=== PATIENT | male | born 1990 | race Caucasian/White ===

== ENCOUNTER 2018-04-29 21:07 | Emergency (ER) | payer SELFPAY ==
[~2018-04-29] VITALS: Ht 172.7 cm; Wt 129.7 kg
--- OUTSIDE RECORDS SUMMARY | 2018-04-29 21:12 | XMS REPORT | Continuity of Care Document ---
Author Author [facility] Address Unknown Phone Unavailable Allergies There is no data. Medications There is no data. Problems Date Dx Coded Attending Type Code Diagnosis Diagnosed By 11/18/2007 V70.3 SPORTS/SCHOOL EXAM 11/18/2007 XIN WINSLOW APRN V70.3 SPORTS/SCHOOL EXAM 11/18/2007 IXN WINSLOW APRN V70.3 SPORTS/SCHOOL EXAM 11/18/2007 XIN WINSLOW APRN V70.3 SPORTS/SCHOOL EXAM 11/18/2007 XIN WINSLOW APRN V70.3 SPORTS/SCHOOL EXAM 11/18/2007 XIN WINSLOW APRN V70.3 SPORTS/SCHOOL EXAM 11/18/2007 XIN WINSLOW APRN V70.3 SPORTS/SCHOOL EXAM 11/18/2007 BECKI LEBLANC APRN S V70.3 SPORTS/SCHOOL EXAM 12/20/2008 477.9 RHINITIS 12/20/2008 XIN WINSLOW APRN 477.9 RHINITIS 12/20/2008 XIN WINSLOW APRN 477.9 RHINITIS 12/20/2008 XIN WINSLOW APRN 477.9 RHINITIS 12/20/2008 XIN WINSLOW APRN 477.9 RHINITIS 12/20/2008 XIN WINSLOW APRN 477.9 RHINITIS 12/20/2008 XIN WINSLOW APRN 477.9 RHINITIS 12/20/2008 BECKI LEBLANC APRN S 477.9 RHINITIS 01/13/2009 462 PHARYNGITIS ACUTE 01/13/2009 XIN WINSLOW APRN 462 PHARYNGITIS ACUTE 01/13/2009 XIN WINSLOW APRN 462 PHARYNGITIS ACUTE 01/13/2009 XIN WINSLOW APRN 462 PHARYNGITIS ACUTE 01/13/2009 XIN WINSLOW APRN 462 PHARYNGITIS ACUTE 01/13/2009 XIN WINSLOW APRN 462 PHARYNGITIS ACUTE 01/13/[address] SQL DEVELOPER, XIN T 462 PHARYNGITIS ACUTE 01/13/2009 BECKI LEBLANC APRN S 462 PHARYNGITIS ACUTE 01/03/2012 703.0 INGROWING NAIL 01/03/2012 NAYLA ALBAN, XIN T 703.0 INGROWING NAIL 01/03/2012 NAYLA ALBAN, XIN T 703.0 INGROWING NAIL 01/03/2012 NAYLA ALBAN, XIN T 703.0 INGROWING NAIL 01/03/2012 NAYLA ALBAN, XIN T 703.0 INGROWING NAIL 01/03/2012 NAYLA ALBAN, XIN T 703.0 INGROWING NAIL 01/03/2012 NAYLA ALBAN, XIN T 703.0 INGROWING NAIL 01/03/2012 BECKI LEBLANC APRN S 703.0 INGROWING NAIL 11/03/2012 382.9 OTITIS MEDIA 11/03/2012 NAYLA HUDDLESTON, XIN T 382.9 OTITIS MEDIA 11/03/2012 NAYLA HUDDLESTON, XIN T 382.9 OTITIS MEDIA 11/03/2012 NAYLA HUDDLESTON, XIN T 382.9 OTITIS MEDIA 11/03/2012 NAYLA HUDDLESTON, XIN T 382.9 OTITIS MEDIA 11/03/2012 NAYLA HUDDLESTON, XIN T 382.9 OTITIS MEDIA 11/03/2012 NAYLA HUDDLESTON, XIN T 382.9 OTITIS MEDIA 11/03/2012 BECKI LEBLANC APRN S 382.9 OTITIS MEDIA 12/29/2012 XIN WINSLOW APRN T 795.51 POSITIVE TB SKIN TEST 12/29/2012 XIN WINSLOW APRN T 795.51 POSITIVE TB SKIN TEST 12/29/2012 XIN WINSLOW APRN T 795.51 POSITIVE TB SKIN TEST 12/29/2012 XIN WINSLOW APRN T 795.51 POSITIVE TB SKIN TEST 12/29/2012 XIN WINSLOW APRN T 795.51 POSITIVE TB SKIN TEST 12/29/2012 XIN WINSLOW APRN T 795.51 POSITIVE TB SKIN TEST 12/29/2012 BECKI LEBLANC APRN S 795.51 POSITIVE TB SKIN TEST 01/01/2013 XIN WINSLOW APRN 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 BACILLI NOT FOUND (IN SPUTUM) BY MICROSCOPY BUT FOUND BY BACTERIAL CULTURE 01/01/2013 XIN WINSLOW APRN 780.57 SLEEP APNEA 01/01/2013 XIN WINSLOW APRN T V04.81 FLU SHOT 01/01/2013 XIN WINSLOW APRN T 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 BACILLI NOT FOUND (IN SPUTUM) BY MICROSCOPY BUT FOUND BY BACTERIAL CULTURE 01/01/2013 XIN WINSLOW APRN T 780.57 SLEEP APNEA 01/01/2013 XIN WINSLOW APRN T V04.81 FLU SHOT 01/01/2013 XIN WINSLOW APRN T 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 BACILLI NOT FOUND (IN SPUTUM) BY MICROSCOPY BUT FOUND BY BACTERIAL CULTURE 01/01/2013 XIN WINSLOW APRN 780.57 SLEEP APNEA 01/01/2013 XIN WINSLOW APRN T V04.81 FLU SHOT 01/01/2013 XIN WISNLOW APRN T 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 BACILLI NOT FOUND (IN SPUTUM) BY MICROSCOPY BUT FOUND BY BACTERIAL CULTURE 01/01/2013 XIN WINSLOW APRN 780.57 SLEEP APNEA 01/01/2013 XIN WINSLOW APRN T V04.81 FLU SHOT 01/01/2013 XIN WINSLOW APRN T 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 BACILLI NOT FOUND (IN SPUTUM) BY MICROSCOPY BUT FOUND BY BACTERIAL CULTURE 01/01/2013 XIN WINSLOW APRN T 780.57 SLEEP APNEA 01/01/2013 XIN WINSLOW APRN T V04.81 FLU SHOT 01/01/2013 BECKI LEBLANC APRN S 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 BACILLI NOT FOUND (IN SPUTUM) BY MICROSCOPY BUT FOUND BY BACTERIAL CULTURE 01/01/2013 BECKI LEBLANC APRN S 780.57 SLEEP APNEA 01/01/2013 BECKI LEBLANC APRN S V04.81 FLU SHOT 01/02/2013 XIN WINSLOW APRN T 780.57 SLEEP APNEA 01/02/2013 XIN WINSLOW APRN T 780.57 SLEEP APNEA 01/02/2013 XIN WINSLOW APRN T 780.57 SLEEP APNEA 01/02/2013 XIN WINSLOW APRN T 780.57 SLEEP APNEA 01/02/2013 XIN WINSLOW APRN T 780.57 SLEEP APNEA 01/02/2013 BECKI LEBLANC APRN S 780.57 SLEEP APNEA 03/13/2013 XIN WINSLOW APRN 327.23 SLEEP APNEA, OBSTRUCTIVE (ADULT/PED) 03/13/2013 XIN WINSLOW APRN 327.23 SLEEP APNEA, OBSTRUCTIVE (ADULT/PED) 03/13/2013 XIN WINSLOW APRN 327.23 SLEEP APNEA, OBSTRUCTIVE (ADULT/PED) 03/13/2013 XIN WINSLOW APRN 327.23 SLEEP APNEA, OBSTRUCTIVE (ADULT/PED) 03/13/2013 BECKI LEBLANC APRN 327.23 SLEEP APNEA, OBSTRUCTIVE (ADULT/PED) 09/26/2013 XIN WINSLOW APRN 278.00 OBESITY 09/26/2013 XIN WINSLOW APRN 278.00 OBESITY 09/26/2013 BECKI LEBLANC APRN 278.00 OBESITY 12/12/2013 XIN WINSLOW APRN 919.5 INSECT BITE INFECTED 12/12/2013 BECKI LEBLANC APRN 919.5 INSECT BITE INFECTED 03/25/2014 BECKI LEBLANC APRN 214.8 LIPOMA OF OTHER SPECIFIED SITES Procedures Code [place] [address] XRAY CHEST 1 VIEW 12/29/2012 88151 SLEEP STUDY 01/01/2013 52390 ROUTINE VENIPUNCTURE 05/23/2013 9962398 GFR CALC (RESULT ONLY) 05/24/2013 88326 CMP 05/24/2013 04564 ROUTINE VENIPUNCTURE 09/26/2013 62980 TSH 09/26/2013 29213 A1C (IN-HOUSE) 09/26/2013 41500 CBC 09/26/2013 1272665 GFR CALC (RESULT ONLY) 09/26/2013 22253 CMP 09/26/2013 52372 LIPID PANEL 09/26/2013 Results There is no data. Encounters ACCT No. Visit Date/Time Discharge Status Pt. Type Provider Facility Loc./Unit Complaint [id number] 03/25/2014 16:56:00 03/25/2014 23:59:59 CLS Outpatient BECKI LEBLANC APRN [id number] 12/12/2013 16:30:00 12/12/2013 23:59:59 CLS Outpatient XIN WINSLOW APRN [id number] 09/26/2013 11:47:00 09/26/2013 23:59:59 CLS Outpatient XIN WINSLOW APRN [id number] 05/23/2013 16:20:00 05/23/2013 23:59:59 CLS Outpatient XIN WINSLOW APRN [id number] 03/13/2013 15:47:00 03/13/2013 23:59:59 CLS Outpatient NAYLA ALBANXIN Michael [id number] 01/01/2013 14:33:00 01/01/2013 23:59:59 CLS Outpatient NAYLA ALBANXIN Michael [id number] 12/29/2012 16:28:00 12/29/2012 23:59:59 CLS Outpatient NAYLA HUDDLESTON XIN Michael [id number] 11/03/2012 11:20:00 Document Registration [id number] 01/25/2013 20:10:00 01/26/2013 07:35:00 DIS Outpatient [id number] 09/14/2017 12:10:00 09/14/2017 23:59:59 CLS Outpatient GILLIAN BAL LAC [facility]
--- OUTSIDE RECORDS SUMMARY | 2018-04-29 21:12 | XMS REPORT ---
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 Active 651981849 Problem Other specified pulmonary tuberculosis, 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, 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.84 Active Problem 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 58483232 Problem Unspecified otitis media 382.9 Active 60051232 Problem Ingrowing nail 703.0 Active 834501690 Problem Obesity, unspecified 278.00 Active 218887751 Problem Obstructive sleep apnea (adult) (pediatric) 327.23 Active [id number] ALLERGIES No Information ENCOUNTERS Encounter Location Date Diagnosis [facility] [id number] [place] [address] Feb, [facility] [id number] [place] [address] Feb, Acute left ankle pain M25.572 ; Sprain of left ankle, unspecified ligament, initial encounter S93.402A and BMI 40.0-44.9, adult Z68.41 [facility] [address] [place] [address] Jun, [facility] [id number] [place] [address] Jun, [facility] [place] [facility] [address] [id number] [place] [address] Feb, [facility] [place] [facility] [address] [id number] [place] [address] Feb, [facility] [place] [facility] [address] [id number] [place] [address] Nov, [facility] [place] [facility] [address] [id number] [place] [address] Nov, [facility] [place] [facility] [address] [id number] [place] [address] Sep, [facility] [place] [facility] [address] [id number] [place] [address] Sep, [facility] [place] [facility] [address] [id number] [place] [address] Sep, [facility] [place] [facility] [address] [id number] [place] [address] 27[address] Sep, [facility] [place] [facility] [address] [id number] [place] [address] July, [facility] [place] [facility] [address] [id number] [place] [address] July, [facility] [place] [facility] [address] [id number] [place] [address] May, [facility] [place] [facility] [address] [id number] [place] [address] May, [facility] [place] [facility] [address] [id number] [place] [address] May, [facility] [place] [facility] [address] [id number] [place] [address] Apr, [facility] [place] [facility] [address] [id number] [place] [address] 4[address] Apr, [facility] [place] [facility] [address] [id number] [place] [address] Apr, [facility] [address] [id number] [place] [address] 2546 Feb, [facility] [address] [facility] [id number] [place] [address] 2546 Feb, [facility] [address] [facility] [id number] [place] [address] Jan, [facility] [address] [id number] [place] [address] Jan, [facility] [address] [facility] [id number] [place] [address] 25[address] Jan, [facility] [address] [facility] [id number] [place] [address] Dec, [facility] [address] [facility] [id number] [place] [address] Dec, [facility] [address] [facility] [id number] [place] [address] Dec, [facility] [address] [id number] [place] [address] 1699 Dec, [facility] [address] [facility] [id number] [place] [address] 8047 Dec, [facility] [address] [id number] [place] [address] Dec, [facility] [address] [facility] [id number] [place] [address] 25[address] Oct, [facility] [address] [facility] [id number] [place] [address] Dec, [facility] [address] [facility] [id number] [place] [address] 2546 Dec, [facility] [address] [facility] [id number] [place] [address] Dec, IMMUNIZATIONS No Known Immunizations SOCIAL HISTORY Never Assessed REASON FOR VISIT Requests return call PLAN OF CARE VITAL SIGNS MEDICATIONS Unknown Medications RESULTS No Results PROCEDURES No Known procedures INSTRUCTIONS MEDICATIONS ADMINISTERED No Known Medications
--- OUTSIDE RECORDS SUMMARY | 2018-04-29 21:12 | XMS REPORT ---
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 Active 263035889 Problem Other specified pulmonary tuberculosis, 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, 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.84 Active Problem 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 30007002 Problem Unspecified otitis media 382.9 Active 15711282 Problem Ingrowing nail 703.0 Active 818881090 Problem Obesity, unspecified 278.00 Active 439004997 Problem Obstructive sleep apnea (adult) (pediatric) 327.23 Active 40902070 ALLERGIES No Known Allergies ENCOUNTERS Encounter Location Date Diagnosis [facility] [address] [place] [address] Feb, [facility] [address] [place] [address] Feb, Acute left ankle pain M25.572 ; Sprain of left ankle, unspecified ligament, initial encounter S93.402A and BMI 40.0-44.9, adult Z68.41 [facility] [address] [place] [address]- [address] Jun, [facility] [id number] [place] [address]- [address]206 Jun, [facility] [place] [facility] [address] [id number] [place] [address] Feb, [facility] [place] [facility] [address] [id number] [place] [address] 5[address] Feb, [facility] [place] [facility] [address] [id number] [place] [address]- 4285 Nov, [facility] [place] [facility] [address] [id number] [place] [address] 6959 Nov, [facility] [place] [facility] [address] [id number] [place] [address]- 1462 Sep, [facility] [place] [facility] [address] [id number] [place] [address]- 9924 Sep, [facility] [place] [facility] [address] [id number] [place] [address] 5658 Sep, [facility] [place] [facility] [address] [id number] [place] [address] 655[address] Sep, [facility] [place] [facility] [address] [id number] [place] [address] 5326 July, [facility] [place] [facility] [address] [id number] [place] [address] 7594 July, [facility] [place] [facility] [address] [id number] [place] [address] May, [facility] [place] [facility] [address] [id number] [place] [address]- 5[address] May, [facility] [place] [facility] [address] [id number] [place] [address]- 1516 May, [facility] [place] [facility] [address] [id number] [place] [address]- 3176 Apr, [facility] [place] [facility] [address] [id number] [place] [address]- 7[address] Apr, [facility] [place] [facility] [address] [id number] [place] [address] 2546 Apr, [facility] [address] [id number] [place] [address]- [address] Feb, [facility] [address] [facility] [id number] [place] [address] 2546 Feb, [facility] [address] [facility] [id number] [place] [address]- 2546 Jan, [facility] [address] [id number] [place] [address]- 2547 Jan, [facility] [address] [facility] [id number] [place] [address]- 0476 Jan, [facility] [address] [facility] [id number] [place] [address]- 2546 Dec, [facility] [address] [facility] [id number] [place] [address]- 55[address] Dec, [facility] [address] [facility] [id number] [address] Dec, [facility] [address] [facility] [id number] [place] [address]- 6[address] Dec, [facility] [address] [facility] [id number][place] [address]- 16[address] Dec, [facility] [address] [facility] [id number][place] [address] 138[address] Dec, [facility] [address] [facility] [id number], [place] [address]- 2546 Oct, [facility] [address] [facility] [id number][place] [address]- [address] Dec, [facility] [address] [facility] [id number] [address] 2546 Dec, [facility] [address] [facility] [id number][place] [address]- [address] Dec, IMMUNIZATIONS No Known Immunizations SOCIAL HISTORY Never Assessed REASON FOR VISIT ankle pain left/tripped over a toy PLAN OF CARE Activity Details Follow Up prn Reason: VITAL SIGNS Height 68 in 2017-03-03 Weight 287.2 lbs 2017-03-03 Temperature 97.8 degrees Fahrenheit 2017-03-03 Heart Rate 80 bpm 2017-03-03 Respiratory Rate 18 2017-03-03 BMI 43.66 kg/m2 2017-03-03 Blood pressure systolic 126 mmHg 2017-03-03 Blood pressure diastolic 78 mmHg 2017-03-03 MEDICATIONS Medication Instructions Dosage Frequency Start Date End Date Duration Status Amoxicillin 875 mg 1 tablet by Oral route 2 times per day for 10 day(s) Oct, Not-Taking Awrwbuzj-Kqqsoakmf-QU 3.5-10,000-1 mg-unit/mL-% 4 drop by Otic route 4 times per day for 7 day(s) to right ear Sep, Not-Taking Doxycycline Hyclate 100 mg 1 tablet by Oral route 2 times per day for 10 days Nov, Not-Taking metformin 500 mg take 1 tablet by Oral route 2 times per day with morning and evening meals Nov, Not-Taking RESULTS Name Result Date Reference Range Xray : Ankle, Left, 3 views (IN HOUSE) 2017-03-03 PROCEDURES Procedure Date Ordered Result Body Site X-RAY EXAM OF ANKLE Mar 03, 2017 INSTRUCTIONS MEDICATIONS ADMINISTERED No Known Medications
--- OUTSIDE RECORDS SUMMARY | 2018-04-29 21:12 | XMS REPORT ---
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 Active 555111588 Problem Other specified pulmonary tuberculosis, 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, 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.84 Active Problem 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 68661227 Problem Unspecified otitis media 382.9 Active 52946148 Problem Ingrowing nail 703.0 Active 310598613 Problem Obesity, unspecified 278.00 Active 330429714 Problem Obstructive sleep apnea (adult) (pediatric) 327.23 Active 90998521 ALLERGIES No Known Allergies ENCOUNTERS Encounter Location Date Diagnosis [facility] [id number] [place] [phone] Aug, Muscle spasm M62.838 [facility] [id number] [place] [phone] Feb, [facility] [id number] [place] [phone] Feb, Acute left ankle pain M25.572 ; Sprain of left ankle, unspecified ligament, initial encounter S93.402A and BMI 40.0-44.9, adult Z68.41 [facility] [id number] [place] [address], [place] [address] 14 Jun, 2014 [facility] [place] [facility] [address] [id number] [place] [address] Jun, [facility] [place] [facility] [address] [id number] [place] [address] Feb, [facility] [place] [facility] [address] [id number] [place] [address] Feb, [facility] [place] [facility] [address] [id number] [place] [address] Nov, [facility] [place] [facility] [address] [id number] [place] [address] Nov, [facility] [place] [facility] [address] [id number] [place] [address] Sep, [facility] [place] [facility] [address] [id number] [place] [address] Sep, [facility] [place] [facility] [address] [id number] [place] [address] Sep, [facility] [place] [facility] [address] [id number] [place] [address] Sep, [facility] [place] [facility] [address] [facility] [id number] [place] [address] July, [facility] [place] [facility] [address] [id number] [place] [address] July, [facility] [place] [facility] [address] [id number] [place] [address] May, [facility] [place] [facility] [address] [id number] [place] [address] May, [facility] [place] [facility] [address] [id number] [place] [address] May, [facility] [place] [facility] [address] [id number] [place] [address] Apr, [facility] [place] [facility] [address] [id number] [place] [address] Apr, [facility] [place] [facility] [address] [id number] [place] [address] Apr, [facility] [place] [facility] [address] [id number] [place] [address] Feb, [facility] [place] [facility] [address] [id number] [place] [address] Feb, [facility] [place] [facility] [address] [id number] [place] [address] Jan, [facility] [place] [facility] [address] [id number] [place] [address] Jan, [facility] [place] [facility] [address] [id number] [place] [address] Jan, [facility] [place] [facility] [address] [id number] [place] [address] Dec, [facility] [place] [facility] [address] [id number] [place] [address] Dec, [facility] [place] [facility] [address] [id number] [place] [address] Dec, [facility] [place] [facility] [address] [facility] [id number] [place] [address] Dec, [facility] [place] [facility] [address] [id number][place] [address] Dec, [facility] [place] [facility] [address] [id number] [place] [address] Dec, [facility] [place] [facility] [address] [id number] [place] [address] Oct, [facility] [place] [facility] [address] [id number][place] [address] Dec, [facility] [place] [facility] [address] [id number][place] [address] Dec, [facility] [address] [facility] [id number] [place] [address] Dec, IMMUNIZATIONS Vaccine Route Administration Date Status TORADOL (IM) 60 MG/2ML (UP TO 15 MG) IM Intramuscular September 14, 2017 Administered SOCIAL HISTORY Never Assessed REASON FOR VISIT back pain started yesterday JStrasserRN PLAN OF CARE Activity Details Follow Up prn Reason: VITAL SIGNS Height 68 in 2017-09-14 Weight 287.0 lbs 2017-09-14 Temperature 98.1 degrees Fahrenheit 2017-09-14 Respiratory Rate 18 2017-09-14 BMI 43.63 kg/m2 2017-09-14 Blood pressure systolic 120 mmHg 2017-09-14 Blood pressure diastolic 72 mmHg 2017-09-14 MEDICATIONS Medication Instructions Dosage Frequency Start Date End Date Duration Status Cyclobenzaprine HCl 10 MG Orally Three times a day 1 tablet as needed 8h 5 days Active metformin 500 mg take 1 tablet by Oral route 2 times per day with morning and evening meals Nov, Not-Taking Ibuprofen 200 MG Orally Three times a day 1 tablet with food or milk as needed 8h Active RESULTS No Results PROCEDURES Procedure Date Ordered Result Body Site TORADOL (IM) 60 MG/2ML (UP TO 15 MG) September 14, 2017 THER/PROPH/DIAG INJ, SC/IM September 14, 2017 INSTRUCTIONS MEDICATIONS ADMINISTERED No Known Medications
[2018-04-29 21:43] LABS: BASOPHILS % (AUTO) 0 % (0-10); EOSINOPHILS # (AUTO) 0.3 10^3/uL (0.0-0.3); EOSINOPHILS % (AUTO) 2 % (0-10); HEMATOCRIT 43 % (40-54); HEMOGLOBIN 14.5 G/DL (13.3-17.7); LYMPHOCYTES # (AUTO) 3.2 X 10^3 (1.0-4.0); LYMPHOCYTES % (AUTO) 26 % (12-44); MEAN CORPUSCULAR HEMOGLOBIN 28 PG (25-34); MEAN CORPUSCULAR HGB CONC 34 G/DL (32-36); MEAN CORPUSCULAR VOLUME 83 FL (80-99); MEAN PLATELET VOLUME 9.5 FL (7.4-10.4); MONOCYTES # (AUTO) 0.7 X 10^3 (0.0-1.0); MONOCYTES % (AUTO) 5 % (0-12); NEUTROPHILS # (AUTO) 8.3 X 10^3 (1.8-7.8); NEUTROPHILS % (AUTO) 67 % (42-75); PLATELET COUNT 341 10^3/uL (130-400); RED CELL DISTRIBUTION WIDTH 12.8 % (10.0-14.5); WHITE BLOOD COUNT 12.4 10^3/uL (4.3-11.0)
--- NOTE | 2018-04-29 21:48 | ED Fall/Injury ---
General Chief Complaint: Trauma POV Arrival Activation Stated Complaint: FELL OFF LADDER,POSS LOC Source: patient Exam Limitations: no limitations History of Present Illness Date Seen by Provider: Apr 29, 2018 Time Seen by Provider: 21:23 Initial Comments PT ARRIVES VIA POV STATES HE WAS STANDING ON TOP OF A 6 FOOT LADDER AND FELL OFF STATES HE HIT HIS HEAD ON A METAL BIRD FEEDER AND DIRT GROUND + BRIEF LOSS OF CONSCIOUSNESS OCCURRED AT HOME AROUND 40 MINUTES AGO WENT TO [place] FIRST, AND WAITED 20 MINUTES, THEN LEFT WITHOUT BEING SEEN AND CAME HERE C/O SEVERE PAIN TO HEAD AND RIGHT POSTERIOR NECK--STATES HE HAS "4 KNOTS" ON HIS HEAD NO PARESTHESIAS OR MOTOR DEFICITS NO VISION CHANGES NO NAUSEA/VOMITING NO BACK PAIN NO DIZZINESS NO CHEST OR ABDOMINAL PAIN HAS MINOR ABRASIONS TO RIGHT DISTAL FOREARM, BUT NO PAIN STATES HE HAS A MINOR SCRAPE BEHIND LEFT KNEE, BUT NO PAIN TO KNEE ITSELF NO HIP PAIN NO PROBLEMS WALKING LAST TETANUS 2013 PCP: CAT Allergies and Home Medications Allergies Coded Allergies: No Known Drug Allergies (Unverified , 04/29/18) Patient Home Medication List Home Medication List Reviewed: Yes Review of Systems Review of Systems Constitutional: no symptoms reported Eyes: No Symptoms Reported Ears, Nose, Mouth, Throat: no symptoms reported Respiratory: no symptoms reported Cardiovascular: no symptoms reported Gastrointestinal: no symptoms reported Genitourinary: no symptoms reported Musculoskeletal: see HPI Skin: see HPI Psychiatric/Neurological: See HPI, Headache; Denies Numbness, Denies Paresthesia, Denies Seizure, Denies Tingling, Denies Tremors, Denies Weakness Past Wvnpzhu-Lzqpvb-Owayhg Hx Patient Social History Alcohol Use: Occasionally Uses Recreational Drug Use: No Smoking Status: Never a Smoker Type Used: Smokeless Tobacco (CHEWS) Recent Foreign Travel: No Contact w/Someone Who Travel: No Immunizations Up To Date Tetanus Booster (TDap): Less than 5yrs (2013) Past Medical History Surgeries: No Respiratory: No Cardiac: No Neurological: No Genitourinary: No Gastrointestinal: No Musculoskeletal: No Endocrine: Yes (SUPPOSED TO BE ON METFORMIN, BUT DOES NOT TAKE IT. DOES NOT CHECK BLOOD SUGAR. OBESE. ) Diabetes, Non-Insulin dep HEENT: No Cancer: No Psychosocial: No Integumentary: No Blood Disorders: No Physical Exam Vital Signs Vital Signs - First Documented 04/29/18 21:27 Temp 99.0 Pulse 88 Resp 16 B/P (MAP) 152/101 (118) Pulse Ox 99 O2 Delivery Room Air Capillary Refill : Height, Weight, BMI Height: '" Weight: lbs. oz. kg; BMI Method: General Appearance: no apparent distress, obese HEENT: PERRL/EOMI, normal ENT inspection, TMs normal, pharynx normal, other (2 LARGE, VERY TENDER HEMATOMAS TO RIGHT POSTERIOR SCALP) Neck: tender lateral (RIGHT CERVICAL PARAVERTEBRAL AREA) Cardiovascular: normal peripheral pulses, regular rate, rhythm, no edema, no JVD, no murmur Respiratory: chest non-tender, normal breath sounds, no respiratory distress, no accessory muscle use Peripheral Pulses: 2+ Dorsalis Pedis (R), 2+ Left Dors-Pedis (L), 2+ Radial Pulses (R), 2+ Radial Pulses (L) Gastrointestinal: normal bowel sounds, non tender, soft, no organomegaly Back: normal inspection, no CVA tenderness, no vertebral tenderness Extremities: normal range of motion, non-tender, no pedal edema, no calf tenderness, normal capillary refill, other (MINOR ABRASION TO RIGHT DISTAL FOREARM. SLIGHT TENDERNESS TO LEFT POPLITEAL AREA--STATES THERE IS A SCRAPE THERE, BUT NO OBVIOUS ABRASION TO ME. NO OTHER KNEE TENDERNESS, FULL ROM. MOTOR/ SENSORY/VASCULAR INTACT IN ALL EXTREMITIES. 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, no motor/sensory deficits, alert, normal mood/affect, oriented x 3 Skin: normal color, warm/dry, other (ABRASIONS) [place] Coma Score Best Eye Response: (4) Open Spontaneously Best Verbal Response: (5) Oriented Best Motor Response: (6) Obeys Commands [place] Total: 15 Progress/Results/Core Measures Results/Orders Lab Results Laboratory Tests Test 04/29/18 21:33 04/29/18 22:02 Range/Units White Blood Count 12.4 H 4.3-11.0 10^3/uL Red Blood Count 5.15 4.35-5.85 10^6/uL Hemoglobin 14.5 13.3-17.7 G/DL Hematocrit 43 40-54 % Mean Corpuscular Volume 83 80-99 FL Mean Corpuscular Hemoglobin 28 25-34 PG Mean Corpuscular Hemoglobin Concent 34 32-36 G/DL Red Cell Distribution Width 12.8 10.0-14.5 % Platelet Count 341 130-400 10^3/uL Mean Platelet Volume 9.5 7.4-10.4 FL Neutrophils (%) (Auto) 67 42-75 % Lymphocytes (%) (Auto) 26 12-44 % Monocytes (%) (Auto) 5 0-12 % Eosinophils (%) (Auto) 2 0-10 % Basophils (%) (Auto) 0 0-10 % Neutrophils # (Auto) 8.3 H 1.8-7.8 X 10^3 Lymphocytes # (Auto) 3.2 1.0-4.0 X 10^3 Monocytes # (Auto) 0.7 0.0-1.0 X 10^3 Eosinophils # (Auto) 0.3 0.0-0.3 10^3/uL Basophils # (Auto) 0.0 0.0-0.1 10^3/uL Prothrombin Time 12.3 12.2-14.7 SEC INR Comment 0.9 0.8-1.4 Activated Partial Thromboplast Time 27 24-35 SEC Sodium Level 139 135-145 MMOL/L Potassium Level 3.5 L 3.6-5.0 MMOL/L Chloride Level 104 98-107 MMOL/L Carbon Dioxide Level 21 21-32 MMOL/L Anion Gap 14 5-14 MMOL/L Blood Urea Nitrogen 21 H 7-18 MG/DL Creatinine 0.92 0.60-1.30 MG/DL Estimat Glomerular Filtration Rate > 60 BUN/Creatinine Ratio 23 Glucose Level 121 H 70-105 MG/DL Calcium Level 9.3 8.5-10.1 MG/DL Corrected Calcium 8.5-10.1 MG/DL Total Bilirubin 0.3 0.1-1.0 MG/DL Aspartate Amino Transf (AST/SGOT) 18 5-34 U/L Alanine Aminotransferase (ALT/SGPT) 25 0-55 U/L Alkaline Phosphatase 57 40-136 U/L Total Protein 8.6 H 6.4-8.2 GM/DL Albumin 4.6 H 3.2-4.5 GM/DL Serum Alcohol < 10 <10 MG/DL Urine Color YELLOW Urine Clarity CLEAR Urine pH 5 5-9 Urine Specific [place] 1.025 H 1.016-1.022 Urine Protein 1+ H NEGATIVE Urine Glucose (UA) NEGATIVE NEGATIVE Urine Ketones 1+ H NEGATIVE Urine Nitrite NEGATIVE NEGATIVE Urine Bilirubin NEGATIVE NEGATIVE Urine Urobilinogen NORMAL NORMAL MG/DL Urine Leukocyte Esterase NEGATIVE NEGATIVE Urine RBC (Auto) 1+ H NEGATIVE Urine RBC NONE /HPF Urine WBC NONE /HPF Urine Squamous Epithelial Cells NONE /HPF Urine Crystals NONE /LPF Urine Bacteria TRACE /HPF Urine Casts NONE /LPF Urine Mucus NEGATIVE /LPF Urine Culture Indicated NO Urine Opiates Screen NEGATIVE NEGATIVE Urine Oxycodone Screen NEGATIVE NEGATIVE Urine Methadone Screen NEGATIVE NEGATIVE Urine Propoxyphene Screen NEGATIVE NEGATIVE Urine Barbiturates Screen NEGATIVE NEGATIVE Ur Tricyclic Antidepressants Screen NEGATIVE NEGATIVE Urine Phencyclidine Screen NEGATIVE NEGATIVE Urine Amphetamines Screen NEGATIVE NEGATIVE Urine Methamphetamines Screen NEGATIVE NEGATIVE Urine Benzodiazepines Screen NEGATIVE NEGATIVE Urine Cocaine Screen NEGATIVE NEGATIVE Urine Cannabinoids Screen NEGATIVE NEGATIVE My Orders Orders - DANNY NAIR K DO Cervical Collar (04/29/18 21:24) Saline Lock/Iv-Start (04/29/18 21:30) Monitor-Rhythm Ecg Trace Only (04/29/18 21:30) Ct Head/Cervical Spine Wo (04/29/18 21:30) Alcohol (04/29/18 21:30) Cbc With Automated Diff (04/29/18 21:30) Comprehensive Metabolic Panel (04/29/18 21:30) Drug Screen Stat (Urine) (04/29/18 21:30) Protime With Inr (04/29/18 21:30) Partial Thromboplastin Time (04/29/18 21:30) Ua Culture If Indicated (04/29/18 21:30) Chest 1 View, Ap/Pa Only (04/29/18 21:30) Pelvis (04/29/18 21:30) Fentanyl Injection (Sublimaze Injection (04/29/18 22:34) Fentanyl Injection (Sublimaze Injection (04/29/18 23:55) Vital Signs/I&O 04/29/18 04/30/18 21:27 01:10 Temp 99.0 98.4 Pulse 88 89 Resp 16 18 B/P (MAP) 152/101 (118) 138/87 (104) Pulse Ox 99 98 O2 Delivery Room Air Room Air Progress Progress Note : Progress Note CERVICAL COLLAR APPLIED IMMEDIATELY ON ARRIVAL TYPE 2 TRAUMA ACTIVATION BASED ON MECHANISM 2229--CERVICAL COLLAR REMOVED, AFTER RECEIVING CT REPORT PT OBSERVED IN ER WITHOUT ANY DETERIORATION IN CONDITION Diagnostic Imaging Comments CXR--NO ACUTE PROCESS PELVIS XRAY--NO ACUTE PROCESS PER RADIOLOGIST REPORTS @ 2221 CT HEAD/CERVICAL SPINE--SOFT TISSUE SWELLING C/W HEMATOMAS TO POSTERIOR SCALP. NO FRACTURES, NO INTRACRANIAL ABNORMALITIES--PER RADIOLOGIST REPORT @ 2230 Reviewed: Reviewed by Me Departure Impression Primary Impression: S/P FALL FROM LADDER Additional Impressions: Closed head injury with brief loss of consciousness MULTIPLE SCALP HEMATOMAS Acute cervical myofascial strain Disposition: HOME, SELF-CARE Condition: Stable Departure-Patient Inst. Referrals: [facility] Patient Instructions: Cervical Muscle Strain (DC), Concussion, Adult (DC), Contusion (DC), HEMATOMA, Preventing Falls Add. Discharge Instructions: ICE TO SORE AREAS AT 20 MINUTE INTERVALS TYLENOL NEEDED FOR PAIN FOLLOW UP WITH [facility] ON TUESDAY FOR FURTHER CARE RETURN TO ER IF PROBLEMS All discharge instructions reviewed with patient and/or family. Voiced understanding. Images Full Body/Extremities Full Progress SEE ADDITIONAL PAPER DIAGRAMS FOR IMAGES DANNY NAIR DO Apr 29, 2018 21:47
[2018-04-29 21:53] LABS: INR 0.9 (0.8-1.4); PROTHROMBIN TIME PATIENT 12.3 SEC (12.2-14.7)
[2018-04-29 22:00] LABS: ALANINE AMINOTRANSFERASE 25 U/L (0-55); ALBUMIN 4.6 GM/DL (3.2-4.5); ALKALINE PHOSPHATASE 57 U/L (40-136); BILIRUBIN,TOTAL 0.3 MG/DL (0.1-1.0); BUN/CREATININE RATIO 23; CALCIUM 9.3 MG/DL (8.5-10.1); CARBON DIOXIDE 21 MMOL/L (21-32); CHLORIDE 104 MMOL/L (98-107); CREATININE SERUM 0.92 MG/DL (0.60-1.30); GFR ESTIMATED > 60; GLUCOSE 121 MG/DL (70-105); POTASSIUM 3.5 MMOL/L (3.6-5.0); SODIUM 139 MMOL/L (135-145); TOTAL PROTEIN 8.6 GM/DL (6.4-8.2)
--- NOTE | 2018-04-29 22:02 | Diagnostic Imaging Report ---
INDICATION: Trauma EXAMINATION: Chest 04/29/2018 Single frontal chest FINDINGS: The cardiomediastinal silhouette is unremarkable. The pulmonary vasculature is within normal limits. The lungs and pleural spaces are clear. IMPRESSION: No evidence of an acute cardiopulmonary process. Dictated by: Dictated on workstation # [id number]
--- NOTE | 2018-04-29 22:05 | Diagnostic Imaging Report ---
INDICATION: Trauma, fell from a ladder EXAMINATION: Pelvis dated 04/29/2018 FINDINGS: Frontal pelvis demonstrates no evidence for fractures or dislocations. The joint spaces appear preserved. Soft tissues are unremarkable. IMPRESSION: Negative pelvis Dictated by: Dictated on workstation # [id number]
[2018-04-29 22:12] LABS: BILIRUBIN,URINE NEGATIVE (NEGATIVE); CLARITY,URINE CLEAR; COLOR,URINE YELLOW; GLUCOSE, URINE (UA) NEGATIVE (NEGATIVE); KETONES,URINE 1+ (NEGATIVE); LEUKOCYTE ESTERASE ,URINE NEGATIVE (NEGATIVE); NITRITE,URINE NEGATIVE (NEGATIVE); PH,URINE 5 (5-9); PROTEIN,URINE 1+ (NEGATIVE); UROBILINOGEN,URINE NORMAL (NORMAL)
[2018-04-29 22:20] LABS: BACTERIA,URINE TRACE /HPF
--- NOTE | 2018-04-29 22:25 | Diagnostic Imaging Report ---
INDICATION: None given. EXAMINATION: CT of the head and cervical spine without contrast. FINDINGS: No hemorrhage or infarct is appreciated. No mass, mass effect or midline shift is noted. There is no hydrocephalus. There is a scalp hematoma overlying the right posterior lateral calvarium. No underlying fracture is appreciated. IMPRESSION: Scalp hematoma. No acute intracranial process appreciated. CT CERVICAL SPINE: There is straightening of the normal curvature likely due to positioning or muscle spasm. No subluxations. No acute fracture is appreciated. Visualized lung apices are clear. The prevertebral soft tissues demonstrate no gross acute abnormalities. There is a large subcutaneous abnormality within the posterior aspect of the inferior scalp and extending into the upper neck right paracentrally. This is most likely a large hematoma, given history. It measures approximately 5.8 cm in transverse dimension, 2.1 cm in AP dimension and 5.4 cm in craniocaudal dimension. Adjacent fat stranding is noted. Clinical correlation for bruising in the region recommended. Followup recommended to assure complete resolution and exclude an underlying mass or lesion in the region, felt to be less likely. Slightly prominent lymph nodes throughout the neck noted and perhaps due to recent inflammatory process, correlate clinically. IMPRESSION: 1. Straightening of the normal curvature of the cervical spine. No fracture is appreciated. 2. Large soft tissue abnormality right paracentrally in the skull base and into the proximal neck. See above description and recommendations, likely a hematoma. 3. Prominent lymph nodes throughout the neck, nonspecific but likely due to recent inflammatory process. Clinical followup could assure stability and resolution. Dictated by: Dictated on workstation # [id number]
[2018-04-29 22:29] LABS: AMPHETAMINE SCREEN, URINE NEGATIVE (NEGATIVE); BARBITURATE SCREEN URINE NEGATIVE (NEGATIVE); BENZODIAZEPINES SCREEN URINE NEGATIVE (NEGATIVE); CANNABINOID SCREEN, URINE NEGATIVE (NEGATIVE); COCAINE SCREEN URINE NEGATIVE (NEGATIVE); METHADONE STAT NEGATIVE (NEGATIVE); METHAMPHETAMINE SCREEN URINE S NEGATIVE (NEGATIVE); OPIATE SCREEN URINE NEGATIVE (NEGATIVE); OXYCODONE STAT NEGATIVE (NEGATIVE); PROPOXYPHENE STAT NEGATIVE (NEGATIVE); TRICYCLIC ANTIDEPRESSANTS SCRE NEGATIVE (NEGATIVE)
[2018-04-29] MEDS ORDERED: fentaNYL INJECTION 100 MCG/2 ML AMP IVP STA ×2 (22:34→23:55)
[2018-04-30 01:10] VITALS: BP 138/87
== END 2018-04-30 01:10 | disposition home or self-care (01) ==
LOC: EDUNIT# 21:07 → ER 21:08
DX: S09.90XA Unspecified injury of head, initial encounter (principal); S00.03XA Contusion of scalp, initial encounter; S16.1XXA Strain of muscle, fascia and tendon at neck level, initial encounter; E66.9 Obesity, unspecified; E11.9 Type 2 diabetes mellitus without complications; R40.2142 Coma scale, eyes open, spontaneous, at arrival to emergency department; R40.2252 Coma scale, best verbal response, oriented, at arrival to emergency department; R40.2362 Coma scale, best motor response, obeys commands, at arrival to emergency department; F17.220 Nicotine dependence, chewing tobacco, uncomplicated; Z68.41 Body mass index [BMI] 40.0-44.9, adult; W11.XXXA Fall on and from ladder, initial encounter; W22.09XA Striking against other stationary object, initial encounter
CPT/HCPCS: 36415; 70450; 71045; 72125; 72170; 80053; 80306; 80320; 81000; 85025; 85610; 85730; 93041

== ENCOUNTER 2018-06-22 18:53 | Emergency (ER) | payer BC, OTHER ==
[~2018-06-22] VITALS: Ht 172.7 cm; Wt 130.2 kg
--- OUTSIDE RECORDS SUMMARY | 2018-06-22 18:58 | XMS REPORT | Continuity of Care Document ---
Author Author [facility] Address Unknown Phone Unavailable Allergies Active Description Code Type Severity Reaction Onset Reported/Identified Relationship to Patient Clinical Status Yes No Known Drug Allergies [id number] Drug Allergy Unknown N/A 04/29/2018 Medications There is no data. Problems Date [...] V70.3 SPORTS/SCHOOL EXAM 11/18/2007 BECKI LEBLANC APRN V70.3 SPORTS/SCHOOL EXAM 12/20/2008 477.9 RHINITIS 12/20/2008 XIN WINSLOW APRN 477.9 RHINITIS 12/20/2008 XIN WINSLOW APRN T 477.9 RHINITIS 12/20/2008 XIN WINSLOW APRN 477.9 RHINITIS 12/20/2008 XIN WINSLOW APRN T 477.9 RHINITIS 12/20/2008 XIN WINSLOW APRN 477.9 RHINITIS 12/20/2008 XIN WINSLOW APRN T 477.9 RHINITIS 12/20/2008 BECKI LEBLANC APRN 477.9 RHINITIS 01/13/2009 462 PHARYNGITIS ACUTE 01/13/2009 XIN WINSLOW APRN 462 PHARYNGITIS ACUTE 01/13/2009 XIN WINSLOW APRN 462 PHARYNGITIS ACUTE 01/13/2009 XIN WINSLOW APRN 462 PHARYNGITIS ACUTE 01/13/2009 [facility], XIN T 462 PHARYNGITIS ACUTE 01/13/2009 NAYLA ALBAN, XIN T 462 PHARYNGITIS ACUTE 01/13/2009 NAYLA ALBAN, XIN T 462 PHARYNGITIS ACUTE 01/13/2009 BECKI LEBLANC APRN S 462 PHARYNGITIS ACUTE 01/03/2012 703.0 INGROWING NAIL 01/03/2012 [facility], XIN T 703.0 INGROWING NAIL 01/03/2012 [facility], XIN T 703.0 INGROWING NAIL 01/03/2012 [facility], XIN T 703.0 INGROWING NAIL 01/03/2012 [facility], XIN T 703.0 INGROWING NAIL 01/03/2012 [facility], XIN T 703.0 INGROWING NAIL 01/03/2012 [facility], XIN T 703.0 INGROWING NAIL 01/03/2012 DEANA HUDDLESTON, BECKI S 703.0 INGROWING NAIL 11/03/2012 382.9 OTITIS MEDIA 11/03/2012 NAYLA HUDDLESTON, XIN T 382.9 OTITIS MEDIA 11/03/2012 NAYLA ALBAN, XIN T 382.9 OTITIS MEDIA 11/03/2012 NAYLA ALBAN, XIN T 382.9 OTITIS MEDIA 11/03/2012 NAYLA ALBAN, XIN T 382.9 OTITIS MEDIA 11/03/2012 NAYLA ALBAN, XIN T 382.9 OTITIS MEDIA 11/03/2012 NAYLA ALBAN, XIN T 382.9 OTITIS MEDIA 11/03/2012 BECKI [...] TB SKIN TEST 01/01/2013 XIN WINSLOW APRN T 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 BACILLI NOT FOUND (IN SPUTUM) BY MICROSCOPY BUT FOUND BY BACTERIAL CULTURE 01/01/2013 XIN WINSLOW APRN 780.57 SLEEP APNEA 01/01/2013 XIN WINSLOW APRN V04.81 FLU SHOT 01/01/2013 XIN WINSLOW APRN [...] 780.57 SLEEP APNEA 01/01/2013 XIN WINSLOW APRN V04.81 FLU SHOT 01/01/2013 XIN WINSLOW APRN [...] 780.57 SLEEP APNEA 01/01/2013 XIN WINSLOW APRN V04.81 FLU SHOT 01/01/2013 BECKI LEBLANC APRN S 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 BACILLI NOT FOUND (IN SPUTUM) BY MICROSCOPY BUT FOUND BY BACTERIAL CULTURE 01/01/2013 LILI LEBLANC APRNNDA S 780.57 SLEEP APNEA 01/01/2013 DEANA HUDDLESTON BECKI S V04.81 FLU SHOT 01/02/2013 XIN WINSLOW APRN 780.57 SLEEP APNEA 01/02/2013 XIN WINSLOW APRN 780.57 SLEEP APNEA 01/02/2013 XIN IWNSLOW APRN 780.57 SLEEP APNEA 01/02/2013 XIN WINSLOW APRN 780.57 SLEEP APNEA 01/02/2013 XIN WINSLOW APRN 780.57 SLEEP APNEA 01/02/2013 BECKI LEBLANC APRN S 780.57 SLEEP APNEA 01/26/2013 XIN WINSLOW Ot 327.23 OBSTRUCTIVE SLEEP APNEA (ADULT) (PEDIATR 03/13/2013 XIN WINSLOW APRN T 327.23 SLEEP APNEA, OBSTRUCTIVE (ADULT/PED) 03/13/2013 XIN WINSOLW APRN T 327.23 SLEEP APNEA, OBSTRUCTIVE (ADULT/PED) 03/13/2013 XIN WINSLOW APRN T 327.23 SLEEP APNEA, OBSTRUCTIVE (ADULT/PED) 03/13/2013 XIN WINSLOW APRN 327.23 SLEEP APNEA, OBSTRUCTIVE (ADULT/PED) 03/13/2013 BECKI LEBLANC APRN S 327.23 SLEEP APNEA, OBSTRUCTIVE (ADULT/PED) 09/26/2013 XIN WINSLOW APRN 278.00 OBESITY 09/26/2013 XIN WINSLOW APRN 278.00 OBESITY 09/26/2013 BECKI LEBLANC APRN S 278.00 OBESITY 12/12/2013 XIN WINSLOW APRN 919.5 INSECT BITE INFECTED 12/12/2013 BECKI LEBLANC APRN S 919.5 INSECT BITE INFECTED 03/25/2014 BECKI LEBLANC APRN S 214.8 LIPOMA OF OTHER SPECIFIED SITES 05/02/2018 DANNY NAIR DO, Ot E11.9 TYPE 2 DIABETES MELLITUS WITHOUT COMPLIC 05/02/2018 DANNY NAIR DO, Ot E66.9 OBESITY, UNSPECIFIED 05/02/2018 DANNY NAIR DO, Ot F17.220 NICOTINE DEPENDENCE, CHEWING TOBACCO, UN 05/02/2018 DANNY NAIR DO, Ot R40.2142 COMA SCALE, EYES OPEN, SPONTANEOUS, EMR 05/02/2018 DANNY NAIR DO, Ot R40.2252 COMA SCALE, BEST VERBAL RESPONSE, ORIENT 05/02/2018 DANNY NAIR DO, Ot R40.2362 COMA SCALE, BEST MOTOR RESPONSE, OBEYS C 05/02/2018 DANNY NAIR DO, Ot R51 HEADACHE 05/02/2018 DANNY NAIR DO, Ot S00.03XA CONTUSION OF SCALP, INITIAL ENCOUNTER 05/02/2018 DANNY NAIR DO, Ot S09.90XA UNSPECIFIED INJURY OF HEAD, INITIAL ENCO 05/02/2018 DANNY NAIR DO, Ot S16.1XXA STRAIN OF MUSCLE, FASCIA AND TENDON AT N 05/02/2018 JOANIE DO, DANNY K Ot W11.XXXA FALL ON AND FROM LADDER, INITIAL ENCOUNT 05/02/2018 DANNY NAIR DO Luisa Ot W22.09XA STRIKING AGAINST OTHER STATIONARY OBJECT 05/02/2018 DANNY NAIR DO Ot Z68.41 BODY MASS INDEX (BMI) 40.0-44.9, ADULT 05/05/2018 DANNY NAIR DO Luisa Ot E11.9 TYPE 2 DIABETES MELLITUS WITHOUT COMPLIC 05/05/2018 JOANIE WALKER DANNY Luisa Ot E66.9 OBESITY, UNSPECIFIED 05/05/2018 JOANIE WALKER DANNY Luisa Ot F17.220 NICOTINE DEPENDENCE, CHEWING TOBACCO, UN 05/05/2018 JOANIE WALKER DANNY Luisa Ot R40.2142 COMA SCALE, EYES OPEN, SPONTANEOUS, EMR 05/05/2018 JOANIE WALKER DANNY Luisa Ot R40.2252 COMA SCALE, BEST VERBAL RESPONSE, ORIENT 05/05/2018 JOANIE WALKER DANNY Luisa Ot R40.2362 COMA SCALE, BEST MOTOR RESPONSE, OBEYS C 05/05/2018 JOANIE WALKER DANNY Luisa Ot R51 HEADACHE 05/05/2018 JOANIE WALKER DANNY Luisa Ot S00.03XA CONTUSION OF SCALP, INITIAL ENCOUNTER 05/05/2018 JOANIE WALKER DANNY Luisa Ot S09.90XA UNSPECIFIED INJURY OF HEAD, INITIAL ENCO 05/05/2018 JOANIE WALKER DANNY Moran Ot S16.1XXA STRAIN OF MUSCLE, FASCIA AND TENDON AT N 05/05/2018 JOANIE WALKER DANNY Moran Ot W11.XXXA FALL ON AND FROM LADDER, INITIAL ENCOUNT 05/05/2018 JOANIE WALKER DANNY Luisa Ot W22.09XA STRIKING AGAINST OTHER STATIONARY OBJECT 05/05/2018 JOANIE WALKER DANNY Luisa Ot Z68.41 BODY MASS INDEX (BMI) 40.0-44.9, ADULT Procedures Code Description [place] [address] XRAY CHEST 1 VIEW 12/29/2012 32782 SLEEP STUDY 01/01/2013 52239 ROUTINE VENIPUNCTURE 05/23/20131588656 GFR CALC (RESULT ONLY) 05/24/2013 21657 CMP 05/24/2013 45756 ROUTINE VENIPUNCTURE 09/26/2013 82778 TSH 09/26/2013 26601 A1C (IN-HOUSE) 09/26/2013 97225 CBC 09/26/20136949248 GFR CALC (RESULT ONLY) 09/26/2013 85573 CMP 09/26/2013 46719 LIPID PANEL 09/26/2013 Results Test Result Range Complete blood count (CBC) with automated white blood cell (WBC) differential - 04/29/18 21:33 Blood leukocytes automated count (number/volume) 12.4 10*3/uL 4.3-11.0 Blood erythrocytes automated count (number/volume) 5.15 10*6/uL 4.35-5.85 Venous blood hemoglobin measurement (mass/volume) 14.5 g/dL 13.3-17.7 Blood hematocrit (volume fraction) 43 % 40-54 Automated erythrocyte mean corpuscular volume 83 [foz_us] 80-99 Automated erythrocyte mean corpuscular hemoglobin (mass per erythrocyte) 28 pg 25-34 Automated erythrocyte mean corpuscular hemoglobin concentration measurement ( mass/volume) 34 g/dL 32-36 Automated erythrocyte distribution width ratio 12.8 % 10.0-14.5 Automated blood platelet count (count/volume) 341 10*3/uL 130-400 Automated blood platelet mean volume measurement 9.5 [foz_us] 7.4-10.4 Automated blood neutrophils/100 leukocytes 67 % 42-75 Automated blood lymphocytes/100 leukocytes 26 % 12-44 Blood monocytes/100 leukocytes 5 % 0-12 Automated blood eosinophils/100 leukocytes 2 % 0-10 Automated blood basophils/100 leukocytes 0 % 0-10 Blood neutrophils automated count (number/volume) 8.3 10*3 1.8-7.8 Blood lymphocytes automated count (number/volume) 3.2 10*3 1.0-4.0 Blood monocytes automated count (number/volume) 0.7 10*3 0.0-1.0 Automated eosinophil count 0.3 10*3/uL 0.0-0.3 Automated blood basophil count (count/volume) 0.0 10*3/uL 0.0-0.1 Comprehensive metabolic panel - 04/29/18 21:33 Serum or plasma sodium measurement (moles/volume) 139 mmol/L 135-145 Serum or plasma potassium measurement (moles/volume) 3.5 mmol/L 3.6-5.0 Serum or plasma chloride measurement (moles/volume) 104 mmol/L 98-107 Carbon dioxide 21 mmol/L 21-32 Serum or plasma anion gap determination (moles/volume) 14 mmol/L 5-14 Serum or plasma urea nitrogen measurement (mass/volume) 21 mg/dL 7-18 Serum or plasma creatinine measurement (mass/volume) 0.92 mg/dL 0.60-1.30 Serum or plasma urea nitrogen/creatinine mass ratio 23 NRG Serum or plasma creatinine measurement with calculation of estimated glomerular filtration rate > NRG Serum or plasma glucose measurement (mass/volume) 121 mg/dL 70-105 Serum or plasma calcium measurement (mass/volume) 9.3 mg/dL 8.5-10.1 Serum or plasma total bilirubin measurement (mass/volume) 0.3 mg/dL 0.1-1.0 Serum or plasma alkaline phosphatase measurement (enzymatic activity/volume) 57 U/L 40-136 Serum or plasma aspartate aminotransferase measurement (enzymatic activity/ volume) 18 U/L 5-34 Serum or plasma alanine aminotransferase measurement (enzymatic activity/volume ) 25 U/L 0-55 Serum or plasma protein measurement (mass/volume) 8.6 g/dL 6.4-8.2 Serum or plasma albumin measurement (mass/volume) 4.6 g/dL 3.2-4.5 PT panel in platelet poor plasma by coagulation assay - 04/29/18 21:33 Prothrombin time (PT) in platelet poor plasma by coagulation assay 12.3 s 12.2-14.7 INR in platelet poor plasma or blood by coagulation assay 0.9 0.8-1.4 Activated partial thromboplastin time (aPTT) in platelet poor plasma bycoagulation assay - 04/29/18 21:33 Activated partial thromboplastin time (aPTT) in platelet poor plasma bycoagulation assay 27 s 24-35 Serum or plasma ethanol measurement (mass/volume) - 04/29/18 21:33 Serum or plasma ethanol measurement (mass/volume) < mg/dL <10 Complete urinalysis with reflex to culture - 04/29/18 22:02 Urine color determination YELLOW NRG Urine clarity determination CLEAR NRG Urine pH measurement by test strip 5 5-9 Specific gravity of urine by test strip 1.025 1.016- 1.022 Urine protein assay by test strip, semi-quantitative 1+ NEGATIVE Urine glucose detection by automated test strip NEGATIVE NEGATIVE Erythrocytes detection in urine sediment by light microscopy 1+ NEGATIVE Urine ketones detection by automated test strip 1+ NEGATIVE Urine nitrite detection by test strip NEGATIVE NEGATIVE Urine total bilirubin detection by test strip NEGATIVE NEGATIVE Urine urobilinogen measurement by automated test strip (mass/volume) NORMAL NORMAL Urine leukocyte esterase detection by dipstick NEGATIVE NEGATIVE Automated urine sediment erythrocyte count by microscopy (number/high power field) NONE NRG Automated urine sediment leukocyte count by microscopy (number/high power field ) NONE NRG Bacteria detection in urine sediment by light microscopy TRACE NRG Squamous epithelial cells detection in urine sediment by light microscopy NONE NRG Crystals detection in urine sediment by light microscopy NONE NRG Casts detection in urine sediment by light microscopy NONE NRG Mucus detection in urine sediment by light microscopy NEGATIVE NRG Complete urinalysis with reflex to culture NO NRG Urine drug screening test - 04/29/18 22:02 Urine phencyclidine detection by screening method NEGATIVE NEGATIVE Urine benzodiazepines detection by screening method NEGATIVE NEGATIVE Urine cocaine detection NEGATIVE NEGATIVE Urine amphetamines detection by screening method NEGATIVE NEGATIVE Urine methamphetamine detection by screening method NEGATIVE NEGATIVE Urine cannabinoids detection by screening method NEGATIVE NEGATIVE Urine opiates detection by screening method NEGATIVE NEGATIVE Urine barbiturates detection NEGATIVE NEGATIVE Screening urine tricyclic antidepressants detection NEGATIVE NEGATIVE Urine methadone detection by screening method NEGATIVE NEGATIVE Urine oxycodone detection NEGATIVE NEGATIVE Urine propoxyphene detection NEGATIVE NEGATIVE Encounters ACCT No. Visit Date/Time Discharge Status Pt. Type Provider Facility Loc./Unit Complaint [id number] 03/25/2014 16:56:00 03/25/2014 23:59:59 CLS Outpatient BECKI LEBLANC APRN [id number] 12/12/2013 16:30:00 12/12/2013 23:59:59 CLS Outpatient [facility], XIN Michael [id number] 09/26/2013 11:47:00 09/26/2013 23:59:59 CLS Outpatient [facility], XIN Michael [id number] 05/23/2013 16:20:00 05/23/2013 23:59:59 CLS Outpatient NAYLA HUDDLESTON XIN Michael [id number] 03/13/2013 15:47:00 03/13/2013 23:59:59 CLS Outpatient [facility], XIN Michael [id number] 01/01/2013 14:33:00 01/01/2013 23:59:59 CLS Outpatient [facility], XIN Michael [id number] 12/29/2012 16:28:00 12/29/2012 23:59:59 CLS Outpatient XIN WINSLOW APRN [id number] 11/03/2012 11:20:00 Document Registration [id number] 04/29/2018 21:08:00 04/30/2018 01:10:00 DIS Outpatient DANNY NAIR DO [facility] ER FELL OFF LADDER,POSS LOC [id number] 01/25/2013 20:10:00 01/26/2013 07:35:00 DIS Outpatient XIN WINSLOW [employer] [facility] SLEEP KIRK,CHOKING, GASPING [id number] 04/29/2018 20:32:00 04/29/2018 20:44:00 DIS Outpatient MOOSE ALLEN [id number] 06/19/2018 11:20:00 06/19/2018 23:59:59 CLS Outpatient [facility]
[2018-06-22] MEDS ORDERED: METF500T8 (19:19)
--- NOTE | 2018-06-22 19:28 | ED EENT ---
History of Present Illness General Chief Complaint: Facial Problems Stated Complaint: FACE NUMBNESS Source: patient Exam Limitations: no limitations History of Present Illness Date Seen by Provider: Jun 22, 2018 Time Seen by Provider: 19:06 Initial Comments Here with report of left facial droop, numbness and difficulty with closing the left eye. Does have some tearing from the left eye. Patient apparently had viral upper respiratory infection last week. Yesterday noted that he was having change in taste on the left side of the time and today noted the difficulty with the left side of the face in that it wasn't moving like normal. He states that it feels swollen. He was seen at outside provider who was concerned because it did not appear that the forehead was involved. Patient is a diabetic. Did have fall with head injury approximately [address] scan at that time. There was concerns about possibility of sequela from that or other concerns. He was sent here for further evaluation. Patient does have decreased facial movements involving the left side of the face including the forehead on presentation. Timing/Duration: gradual, yesterday Severity: moderate Location: dental Prearrival Treatment: no prearrival treatment Modifying Factors: Improves With Other (none) Associated Symptoms: No cough, No facial pain/swelling, No fever, No nasal congestion/drainage, No sinus infection, No sore throat Allergies and Home Medications Allergies Coded Allergies: No Known Drug Allergies (Unverified , 04/29/18) Home Medications Prednisone 20 Mg Tab, 40 MG PO DAILY Prescribed by: MJ BISHOP on 06/22/181934 Valacyclovir HCl 1,000 Mg Tablet, 1,000 MG PO BID Prescribed by: MJ BISHOP on 06/22/181934 Patient Home Medication List Home Medication List Reviewed: Yes Review of Systems Review of Systems Constitutional: see HPI; No chills, No fever Eyes: Denies Decreased Acuity; Other (left eye watering and left eyelid droop) Ears: No Symptoms Reported Nose: no symptoms reported Mouth: see HPI Throat: no symptoms reported Respiratory: no symptoms reported Cardiovascular: no symptoms reported Neurological: See HPI Past Wkxpvqu-Ttyeez-Xraunh Hx Past Med/Social Hx: Reviewed Nursing Past Med/Soc Hx Patient Social History Alcohol Use: Rarely Uses Recreational Drug Use: No Smoking Status: Former Smoker Type Used: Smokeless Tobacco 2nd Hand Smoke Exposure: Yes Recent Foreign Travel: No Contact w/Someone Who Travel: No Recent Hopitalizations: No Immunizations Up To Date Tetanus Booster (TDap): Less than 5yrs Seasonal Allergies Seasonal Allergies: No Past Medical History Surgeries: No Respiratory: No Cardiac: No Neurological: No Genitourinary: No Gastrointestinal: No Musculoskeletal: No Endocrine: Yes Diabetes, Non-Insulin dep HEENT: No Cancer: No Psychosocial: No Integumentary: No Blood Disorders: No Family Medical History Reviewed Nursing Family Hx Physical Exam Vital Signs Vital Signs - First Documented 06/22/18 19:06 Temp 98.3 Pulse 90 Resp 18 B/P (MAP) 137/81 (99) Pulse Ox 99 O2 Delivery Room Air Height, Weight, BMI Height: 5'8.00" Weight: 286lbs. 0oz. 129.887384vq; 42.18 BMI Method:Stated General Appearance: WD/WN, no apparent distress Eyes: left eye other (left eyelid with decreased movement from right); bilateral eye PERRL, bilateral eye EOMI Ears: bilateral ear auricle normal, bilateral ear canal normal, bilateral ear TM normal Nose: normal inspection Mouth/Throat: pharynx normal; No tongue swollen Neck: full range of motion, supple Cardiovascular: regular rate, rhythm, no murmur Respiratory: lungs clear, normal breath sounds Neurologic/Psychiatric: alert, oriented x 3, other (normal gait. Normal range of motion all 4 extremities. Left sided facial droop involving the forehead, left upper and lower lids, left cheek and mouth noted. No deviation on tongue noted. Reports some decreased sensation in the area is concerned. States it feels fat like he is at the dentist.) Skin: normal color, warm/dry Progress/Results/Core Measures Results/Orders My Orders Orders - MJ BISHOP MD Ct Head Wo (06/22/18 19:16) Prednisone Tablet (Deltasone Tablet) (06/22/18 19:30) Valacyclovir Tablet (Valtrex Tablet) (06/22/18 19:30) Medications Given in ED Current Medications Medications Dose Ordered Sig/Frankie Route Start Time Stop Time Status Last Admin Dose Admin Prednisone 60 mg ONCE ONCE PO 06/22/18 19:30 06/22/18 19:31 DC 06/22/18 19:37 60 MG Vital Signs/I&O 06/22/18 19:06 Temp 98.3 Pulse 90 Resp 18 B/P (MAP) 137/81 (99) Pulse Ox 99 O2 Delivery Room Air Progress Progress Note : Progress Note Seen and evaluated. This is almost surely Rivera's palsy but given his recent head injury, repeat CT scan is indicated. We will go ahead and do this and patient and family very appreciative of that as they were very concerned about injury. Prednisone 60 mg by mouth. Valacyclovir 1000 mg by mouth. We will continue that outpatient. Pending CT scan. 2005: No acute bleed noted. CT results noted. We'll send a copy of the chart to the clinic. Discharged home with return precautions. Patient verbalize understanding instructions and agreement with plan. Diagnostic Imaging Diagonstic Imaging: CT Plain Films/CT/US/NM/MRI: head Comments NAME: ELIZABETH MCCORMACK [employer] REC#: [id number] PT STATUS: REG ER : 1990 PHYSICIAN: MJ BISHOP MD ADMIT DATE: 06/22/18/ER Signed Date of Exam: 06/22/18 CT HEAD WO PROCEDURE: CT head without contrast. TECHNIQUE: Multiple contiguous axial images were obtained through the brain without the use of intravenous contrast. Auto Exposure Controls were utilized during the CT exam to meet ALARA standards for radiation dose reduction. INDICATION: 27-year-old male with headache. COMPARISONS: 04/29/2018. FINDINGS: Midline structures are not displaced. Lateral, third, and fourth ventricles are normal in size, shape, and anatomic position. There is no mass, mass effect, hydrocephalus, or hemorrhage. Macias-white differentiation is normal. There is no sulcal effacement. There is slight increased attenuation seen within the dural sinuses, primarily in the right transverse sinus. This may be a normal variant. This can also be seen with hemoconcentration possibly from dehydration. The remote possibility of dural sinus thrombosis is not entirely excluded in the appropriate clinical setting. There are no abnormal extra-axial fluid collections or hemorrhage. Basilar cisterns appear normal. Sinuses, orbits, and mastoid air cells are normal. Bone windows show no calvarial changes. IMPRESSION: 1. Essentially unremarkable nonenhanced CT brain. 2. There is increased attenuation within the dural sinuses, which may be within normal limits. This can also be seen with hemoconcentration possibly from dehydration and very remote possibility of a thrombus within the dural sinuses. If there is clinical concern and in the appropriate clinical setting, an MRI brain with MRV brain would be of further value. Dictated by: Dictated on workstation # [id number] Dict: 06/22/181942 Trans: 06/22/181951 Interpreted by: STANLEY MARTIN MD Electronically signed by: STANLEY MARTIN MD 06/22/181951 Departure Impression Primary Impression: Rivera's palsy Disposition: HOME, SELF-CARE Condition: Stable Departure-Patient Inst. Decision time for Depature: 19:31 [place] [facility] [place] Primary Care Physician Patient Instructions: Rivera's Palsy (DC) Add. Discharge Instructions: All discharge instructions reviewed with patient and/or family. Voiced understanding. Take medications as directed. Follow-up with your doctor for recheck and further evaluation early next week. You may use moisturizing eyedrops to the left eye prevent drying. You may consider using paper tape over the left eye at nighttime to keep the eyelid closed so the eye doesn't dry during sleep. Return for worse pain, fever, vomiting, weakness, breathing problems or other concerns as needed. Scripts Prednisone (Prednisone) 20 Mg Tab 40 MG PO DAILY, #14 TAB 0 Refills Prov: MJ BISHOP MD 06/22/18 Valacyclovir HCl (Valacyclovir) 1,000 Mg Tablet 1000 MG PO BID, #14 TAB Prov: MJ BISHOP MD 06/22/18 Copy Copies To 1: OLIVER COX TIMOTHY D MD Jun 22, 2018 19:28
[2018-06-22] MEDS ORDERED: predniSONE 20 MG TAB PO ONE (19:30)
[2018-06-22] MEDS ORDERED: VALACYCLOVIR 500 MG TAB (VALTREX) PO SCH (19:30)
[2018-06-22] MEDS ORDERED: PRD20T PO (19:35)
[2018-06-22] MEDS ORDERED: VALA1000 PO (19:35)
--- NOTE | 2018-06-22 19:51 | Diagnostic Imaging Report ---
PROCEDURE: CT head without contrast. TECHNIQUE: Multiple contiguous axial images were obtained through the brain without the use of intravenous contrast. Auto Exposure Controls were utilized during the CT exam to meet ALARA standards for radiation dose reduction. INDICATION: 27-year-old male with headache. COMPARISONS: 04/29/2018. FINDINGS: Midline structures are not displaced. Lateral, third, and fourth ventricles are normal in size, shape, and anatomic position. There is no mass, mass effect, hydrocephalus, or hemorrhage. Macias-white differentiation is normal. There is no sulcal effacement. There is slight increased attenuation seen within the dural sinuses, primarily in the right transverse sinus. This may be a normal variant. This can also be seen with hemoconcentration possibly from dehydration. The remote possibility of dural sinus thrombosis is not entirely excluded in the appropriate clinical setting. There are no abnormal extra-axial fluid collections or hemorrhage. Basilar cisterns appear normal. Sinuses, orbits, and mastoid air cells are normal. Bone windows show no calvarial changes. IMPRESSION: 1. Essentially unremarkable nonenhanced CT brain. 2. There is increased attenuation within the dural sinuses, which may be within normal limits. This can also be seen with hemoconcentration possibly from dehydration and very remote possibility of a thrombus within the dural sinuses. If there is clinical concern and in the appropriate clinical setting, an MRI brain with MRV brain would be of further value. Dictated by: Dictated on workstation # [id number]
[2018-06-22 20:10] VITALS: BP 137/81
== END 2018-06-22 20:14 | disposition home or self-care (01) ==
LOC: EDUNIT# 18:53 → ER 18:54
DX: G51.0 Bell's palsy (principal); E11.9 Type 2 diabetes mellitus without complications; Z87.891 Personal history of nicotine dependence
CPT/HCPCS: 70450

== ENCOUNTER → 2018-07-07 | Outpatient (CLI) | payer BC ==
[~2018-07-07] MED LIST: METF500T8; PRD20T PO; VALA1000 PO
[2018-07-07 11:54] LABS: SEMEN VOLUME 1.1 ML (1.5-5.0)
== END ==
LOC: LAB 10:13
PROVIDERS: ATTEND Nurse Practitioner Primary Care
DX: Z31.41 Encounter for fertility testing (principal)
CPT/HCPCS: 89320

== ENCOUNTER → 2018-12-14 | Outpatient (CLI) | payer BC | LOC: LAB 12:35 | PROVIDERS: ATTEND Urology | DX: N46.9 Male infertility, unspecified (principal) | CPT/HCPCS: 89320 ==

== ENCOUNTER 2019-02-27 19:18 | Emergency (ER) | payer BC ==
[~2019-02-27] VITALS: Ht 173 cm; Wt 130.0 kg
[~2019-02-27 19:18] MED LIST changes: +METF500T19; -METF500T8
--- NOTE | 2019-02-27 19:51 | ED EENT ---
History of Present Illness General Chief Complaint: Facial Problems Stated Complaint: L FACIAL TINGLING/NUMBNESS/R EAR HEARING ISSUES Nursing Triage Note: left side of face in tingling like he is really cold. He also is c/o right ear being "plugged up" Source: patient Exam Limitations: no limitations History of Present Illness Date Seen by Provider: Feb 27, 2019 Time Seen by Provider: 19:45 Initial Comments To ER accompanied by his with c/o left facial intermittent tingling since 10am today. States it feels "cold" and "like I got smacked". Denies any known injury. 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 He states that the intermittent tingling that he has today is similar to how his episode of Rivera's palsy started earlier this year. Also reports a fractured left upper tooth, intermittently painful when chewing for one year. No swelling. No fever no chills. He also has "fluid" in his right ear stating "it feels like there is fluid in it" Timing/Duration: abrupt Severity: moderate Location: facial Prearrival Treatment: no prearrival treatment Allergies and Home Medications Allergies Coded Allergies: No Known Drug Allergies (Unverified , 04/29/18) Home Medications Prednisone 20 Mg Tab, 40 MG PO DAILY Prescribed by: MJ BISHOP on 06/22/181934 Valacyclovir HCl 1,000 Mg Tablet, 1,000 MG PO BID Prescribed by: MJ BISHOP on 06/22/181934 Patient Home Medication List Home Medication List Reviewed: Yes Review of Systems Review of Systems Constitutional: see HPI Eyes: No Symptoms Reported Ears: No Symptoms Reported Nose: no symptoms reported Mouth: no symptoms reported Throat: no symptoms reported Respiratory: no symptoms reported Cardiovascular: no symptoms reported Musculoskeletal: no symptoms reported Past Kexzteh-Iwnlqq-Fjhyel Hx Patient Social History Alcohol Use: Occasionally Uses Recreational Drug Use: No Type Used: Smokeless Tobacco 2nd Hand Smoke Exposure: Yes Recent Foreign Travel: No Contact w/Someone Who Travel: No Recent Infectious Disease Expo: No Recent Hopitalizations: No Immunizations Up To Date Tetanus Booster (TDap): Less than 5yrs Seasonal Allergies Seasonal Allergies: No Past Medical History Surgeries: No Respiratory: No Cardiac: No Neurological: No Genitourinary: No Gastrointestinal: No Musculoskeletal: No Endocrine: Yes Diabetes, Non-Insulin dep HEENT: No Cancer: No Psychosocial: No Integumentary: No Blood Disorders: No Physical Exam Vital Signs Vital Signs - First Documented 02/27/19 19:22 Temp 37.1 Pulse 80 Resp 20 B/P (MAP) 160/93 (115) Pulse Ox 96 O2 Delivery Room Air Height, Weight, BMI Height: 5'8.00" Weight: 287lbs. 0oz. 130.431965oh; 43.00 BMI Method:Stated General Appearance: WD/WN, no apparent distress, other (tingling sensation involves mostly the maxillary region and just ABOVE the Left eyebrow suggesting peripheral nerve involvement rather than central lesion. He has already had 2 CT scans of the head this year for head injury in April, no injury since then. The CTs were unremarkable.) Eyes: bilateral eye normal inspection, bilateral eye PERRL, bilateral eye EOMI Ears: right ear other (no unusual appearance of the right ear); bilateral ear auricle normal, bilateral ear canal normal, bilateral ear TM normal Nose: normal inspection Mouth/Throat: normal mouth inspection, pharynx normal Neck: non-tender, full range of motion Respiratory: normal breath sounds, no respiratory distress, no accessory muscle use Gastrointestinal: normal bowel sounds, non tender, soft Neurologic/Psychiatric: alert, normal mood/affect, oriented x 3 Skin: normal color, warm/dry There is no asymmetry at all with facial movements. At the beginning of my exam he did have the tingling sensation, at the end of my exam he states that the tingling sensation had resolved as it has been doing all day today, off and on. Denies headache. There is a fractured tooth but the buccal surface and gingiva are nontender to palpation there is no swelling or fluctuance. Progress/Results/Core Measures Results/Orders Vital Signs/I&O 02/27/19 19:22 Temp 37.1 Pulse 80 Resp 20 B/P (MAP) 160/93 (115) Pulse Ox 96 O2 Delivery Room Air Blood Pressure Mean: 115 POS Departure Communication (Admissions) No drift of either arm, speech is clear and appropriate, no visual changes. No recent illnesses. Impression Primary Impression: Numbness and tingling of left side of face Disposition: 01 HOME, SELF-CARE Condition: Stable Departure-Patient Inst. Decision time for Depature: 19:50 Referrals: [facility] (PCP) Primary Care Physician KRISTA BATISTA APRN (Family) Primary Care Physician Patient Instructions: NO INSTRUCTIONS GIVEN Add. Discharge Instructions: 1. Return to ER for any concerns 2. Follow-up with your family doctor this week for recheck within 48 hours. Return promptly to ER for any worsening symptoms or other concerns. He should also follow-up with a neurologist, there are none in [place], the closest ones are in [place] and a phone number has been provided. If you develop left-sided facial swelling, increased pain or swelling inside your mouth then start the a ntibiotics (amoxicillin). Otherwise you do not need to start antibiotics. All discharge instructions reviewed with patient and/or family. Voiced understanding. Scripts Prednisone (Prednisone) 20 Mg Tab 40 MG PO DAILY, #6 TAB 0 Refills Prov: UGO ENRIQUE APRN 02/27/19 Valacyclovir HCl (Valacyclovir) 1,000 Mg Tablet 1000 MG PO TID, #21 TAB Prov: UGO ENRIQUE APRN 02/27/19 Amoxicillin (Amoxicillin) 500 Mg Capsule 500 MG PO TID, #21 CAP 0 Refills Prov: UGO ENRIQUE APRN 02/27/19 Images Head/Face 1 - UGO ENRIQUE APRN Feb 27, 2019 19:51 POS
[2019-02-27] MEDS ORDERED: AMOX500C2 PO (19:52)
[2019-02-27] MEDS ORDERED: PRD20T PO (19:52)
[2019-02-27] MEDS ORDERED: VALA1000 PO (19:52)
[2019-02-27] MEDS ORDERED: ACYCLOVIR 400 MG TABLET (ZOVIRAX) PO SCH (20:00)
[2019-02-27] MEDS ORDERED: predniSONE 20 MG TAB PO ONE (20:00)
[2019-02-27 20:09] VITALS: BP 139/68
--- OUTSIDE RECORDS SUMMARY | 2019-03-25 10:00 | XMS REPORT | Continuity of Care Document ---
Author Organization Unknown Address Unknown Phone Unavailable Allergies Active Description Code Type Severity Reaction Onset Reported/Identified Relationship to Patient Clinical Status Yes No Known Drug Allergies [id number] Drug Allergy Unknown N/A 04/29/2018 Medications There is no data. Problems Date Dx Coded Attending Type Code Diagnosis Diagnosed By 01/26/2013 XIN WINSLOW Ot 327.23 OBSTRUCTIVE SLEEP APNEA (ADULT) (PEDIATR 04/30/2018 DANNY NAIR DO Ot E11.9 TYPE 2 DIABETES MELLITUS WITHOUT COMPLIC 04/30/2018 DANNY NAIR DO, Ot E66.9 OBESITY, UNSPECIFIED 04/30/2018 DANNY NAIR DO Ot F17.220 NICOTINE DEPENDENCE, CHEWING TOBACCO, UN 04/30/2018 DANNY NAIR DO Ot R40.214 2 COMA SCALE, EYES OPEN, SPONTANEOUS, EMR 04/30/2018 DANNY NAIR DO Ot R40.225 2 COMA SCALE, BEST VERBAL RESPONSE, ORIENT 04/30/2018 DANNY NAIR DO Ot R40.236 2 COMA SCALE, BEST MOTOR RESPONSE, OBEYS C 04/30/2018 DANNY NAIR DO Ot R51 HEADACHE 04/30/2018 DANNY NAIR DO, Ot S00.03X A CONTUSION OF SCALP, INITIAL ENCOUNTER 04/30/2018 DANNY NAIR DO, Ot S09.90X A UNSPECIFIED INJURY OF HEAD, INITIAL ENCO 04/30/2018 DANNY NAIR DO, Ot S16.1XX A STRAIN OF MUSCLE, FASCIA AND TENDON AT N 04/30/2018 DANNY NAIR DO Ot W11.XXX A FALL ON AND FROM LADDER, INITIAL ENCOUNT 04/30/2018 DANNY NAIR DO Ot W22.09X A STRIKING AGAINST OTHER STATIONARY OBJECT 04/30/2018 DANNY NAIR DO, Ot Z68.41 BODY MASS INDEX (BMI) 40.0-44.9, ADULT 05/02/2018 JOANIE DO, DANNY K Ot E11.9 TYPE 2 DIABETES MELLITUS WITHOUT COMPLIC 05/02/2018 JOANIE DANNY Luisa Ot E66.9 OBESITY, UNSPECIFIED 05/02/2018 [facility] DANNY Luisa Ot F17.220 NICOTINE DEPENDENCE, CHEWING TOBACCO, UN 05/02/2018 [place] , DANNY Luisa Ot R40.214 2 COMA SCALE, EYES OPEN, SPONTANEOUS, EMR 05/02/2018 [facility] DANNY K Ot R40.225 2 COMA SCALE, BEST VERBAL RESPONSE, ORIENT 05/02/2018 [facility] DANNY Luisa Ot R40.236 2 COMA SCALE, BEST MOTOR RESPONSE, OBEYS C 05/02/2018 JOANIE DANNY Ot R51 HEADACHE 05/02/2018 JOANIE DO DANNY K Ot S00.03X A CONTUSION OF SCALP, INITIAL ENCOUNTER 05/02/2018 [facility] DANNY Luisa Ot S09.90X A UNSPECIFIED INJURY OF HEAD, INITIAL ENCO 05/02/2018 JOANIE DANNY Luisa Ot S16.1XX A STRAIN OF MUSCLE, FASCIA AND TENDON AT N 05/02/2018 [facility] DANNY Luisa Ot W11.XXX A FALL ON AND FROM LADDER, INITIAL ENCOUNT 05/02/2018 JOANIE DANNY Luisa Ot W22.09X A STRIKING AGAINST OTHER STATIONARY OBJECT 05/02/2018 JOANIE DO DANNY Luisa Ot Z68.41 BODY MASS INDEX (BMI) 40.0-44.9, ADULT 05/05/2018 JOANIE DANNY Luisa Ot E11.9 TYPE 2 DIABETES MELLITUS WITHOUT COMPLIC 05/05/2018 JOANIE DANNY Luisa Ot E66.9 OBESITY, UNSPECIFIED 05/05/2018 [facility] DANNY Moran Ot F17.220 NICOTINE DEPENDENCE, CHEWING TOBACCO, UN 05/05/2018 [place] DANNY Moran Ot R40.214 2 COMA SCALE, EYES OPEN, SPONTANEOUS, EMR 05/05/2018 JOANIE DANNY Luisa Ot R40.225 2 COMA SCALE, BEST VERBAL RESPONSE, ORIENT 05/05/2018 JOANIE DANNY K Ot R40.236 2 COMA SCALE, BEST MOTOR RESPONSE, OBEYS C 05/05/2018 JOANIE DANNY WALKER Ot R51 HEADACHE 05/05/2018 JOANIE DANNY WALKER Ot S00.03X A CONTUSION OF SCALP, INITIAL ENCOUNTER 05/05/2018 DANNY NAIR DO Ot S09.90X A UNSPECIFIED INJURY OF HEAD, INITIAL ENCO 05/05/2018 DANNY NAIR DO Ot S16.1XX A STRAIN OF MUSCLE, FASCIA AND TENDON AT N 05/05/2018 DANNY NAIR DO Ot W11.XXX A FALL ON AND FROM LADDER, INITIAL ENCOUNT 05/05/2018 DANNY NAIR DO Ot W22.09X A STRIKING AGAINST OTHER STATIONARY OBJECT 05/05/2018 DANNY NAIR DO Ot Z68.41 BODY MASS INDEX (BMI) 40.0-44.9, ADULT 06/22/2018 MJ BISHOP MD, Ot E11.9 TYPE 2 DIABETES MELLITUS WITHOUT COMPLIC 06/22/2018 MJ BISHOP MD, Ot 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 06/22/2018 MJ BISHOP MD, Ot R20.0 ANESTHESIA OF SKIN 06/22/2018 MJ BISHOP MD, Ot Z87.891 PERSONAL HISTORY OF NICOTINE DEPENDENCE 06/24/2018 MJ BISHOP MD, Ot E11.9 TYPE 2 DIABETES MELLITUS WITHOUT COMPLIC 06/24/2018 MJ BISHOP MD, Ot 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 06/24/2018 MJ BISHOP MD, Ot R20.0 ANESTHESIA OF SKIN 06/24/2018 MJ BISHOP MD, Ot Z87.891 PERSONAL HISTORY OF NICOTINE DEPENDENCE 07/11/2018 KRISTA BATISTA APRN Ot Z31.41 ENCOUNTER FOR FERTILITY TESTING 08/02/2018 KRISTA BATISTA APRN Ot Z31.41 ENCOUNTER FOR FERTILITY TESTING 10/18/2018 KRISTA BATISTA APRN Ot Z31.41 ENCOUNTER FOR FERTILITY TESTING 11/16/2018 KRISTA BATISTA APRN Ot Z31.41 ENCOUNTER FOR FERTILITY TESTING 12/18/2018 CONCEPCION MYERS MD Ot N46.9 MALE INFERTILITY, UNSPECIFIED 03/09/2019 CONCEPCION MYERS MD Ot Z01.8 9 ENCOUNTER FOR OTHER SPECIFIED SPECIAL EX Procedures There is no data. Results Test Result Range Complete blood count (CBC) with automate d white blood cell (WBC) differential - 04/29/18 21:33 Blood leukocytes automated count (number/volume) 12.4 10*3/uL 4.3-11.0 Blood erythrocytes automated count (number/volume) 5.15 10*6/uL 4.35-5.85 Venous blood hemoglobin measurement (mass/volume) 14.5 g/dL 13.3-17.7 Blood hematocrit (volume fraction) 43 % 40-54 Automated erythrocyte mean corpuscular volume 83 [ foz_us] 80-99 Automated erythrocyte mean corpuscular h emoglobin (mass per erythrocyte) 28 pg 25-34 Automated erythrocyte mean corpuscular h emoglobin concentration measurement (mass/volume) 34 g/dL 32-36 Automated erythrocyte distribution width ratio 12. 8 % 10.0- 14.5 Automated blood platelet count (count/volume) 341 10*3/uL [...] 10*3 1.0-4.0 Blood monocytes automated count (number/volume) 0. 7 10*3 0.0-1.0 Automated eosinophil count 0.3 10*3/uL 0 .0-0.3 Automated blood basophil count (count/volume) 0.0 10*3/uL 0.0-0.1 Comprehensive metabolic panel - 04/29/18 21:33 Serum or plasma sodium measurement (moles/volume) 139 mmol/L 135-145 Serum or plasma potassium measurement (moles/volume) 3.5 mmol/L 3.6-5.0 Serum or plasma chloride measurement (moles/volume) 104 mmol/L 98-107 Carbon dioxide 21 mmol/L 21-32 Serum or plasma anion gap determination (moles/volume) 14 mmol/L 5-14 Serum or plasma urea nitrogen measurement (mass/volume ) 21 mg/dL 7-18 Serum or plasma creatinine measurement (mass/volume) 0.92 mg/dL 0.60-1.30 Serum or plasma urea nitrogen/creatinine mass ratio 23 NRG Serum or plasma creatinine measurement w ith calculation of estimated glomerular filtration rate > NRG Serum or plasma glucose measurement (mass/volume) 121 mg/dL 70-105 Serum or plasma calcium measurement (mass/volume) 9.3 mg/dL 8.5-10.1 Serum or plasma total bilirubin measurement (mass/volu me) 0.3 mg/dL 0.1-1.0 Serum or plasma alkaline phosphatase juve surement (enzymatic activity/volume) 57 U/L 40-136 Serum or plasma aspartate aminotransfera se measurement (enzymatic activity/volume) 18 U/L 5-34 Serum or plasma alanine aminotransferase measurement (enzymatic activity/volume) 25 U/L 0-55 Serum or plasma protein measurement (mass/volume) 8.6 g/dL 6.4-8.2 Serum or plasma albumin measurement (mass/volume) 4.6 g/dL 3.2-4.5 PT panel in platelet poor plasma by coag ulation assay - 04/29/18 21:33 Prothrombin time (PT) in platelet poor plasma by coagu lation assay 12.3 s 12.2-14.7 INR in platelet poor plasma or blood by coagulation as say 0.9 0.8-1.4 Activated partial thromboplastin time (a PTT) in platelet poor plasma bycoagulation assay - 04/29/18 21:33 Activated partial thromboplastin time (a PTT) in platelet poor plasma bycoagulation assay 27 s 24-35 Serum or plasma ethanol measurement (mas s/volume) - 04/29/18 21:33 Serum or plasma ethanol measurement (mass/volume) < mg/dL <10 Complete urinalysis with reflex to cultu re - 04/29/18 22:02 Urine color determination YELLOW NRG Urine clarity determination CLEAR NR G Urine pH measurement by test strip 5 5-9 Specific gravity of urine by test strip 1.025 1.016-1.022 Urine protein assay by test strip, semi-quantitative 1+ NEGATIVE Urine glucose detection by automated test strip NE GATIVE NEGATIVE Erythrocytes detection in urine sediment by light micr oscopy 1+ NEGATIVE Urine ketones detection by automated test strip 1+ NEGATIVE Urine nitrite detection by test strip NEGATIVE NEGATIVE Urine total bilirubin detection by test strip NEGA TIVE NEGATIVE Urine urobilinogen measurement by automated test strip (mass/volume) NORMAL NORMAL Urine leukocyte esterase detection by dipstick NEG ATIVE NEGATIVE Automated urine sediment erythrocyte cou nt by microscopy (number/high power field) NONE NRG Automated urine sediment leukocyte count by microscopy (number/high power field) NONE NRG Bacteria detection in urine sediment by light microsco py TRACE NRG Squamous epithelial cells detection in u rine sediment by light microscopy NONE NRG Crystals detection in urine sediment by light microsco py NONE NRG Casts detection in urine sediment by light microscopy NONE NRG Mucus detection in urine sediment by light microscopy NEGATIVE NRG Complete urinalysis with reflex to culture NO NRG Urine drug screening test - 04/29/18 22: 02 Urine phencyclidine detection by screening method NEGATIVE NEGATIVE Urine benzodiazepines detection by screening method NEGATIVE NEGATIVE Urine cocaine detection NEGATIVE NEGATI VE Urine amphetamines detection by screening method N EGATIVE NEGATIVE Urine methamphetamine detection by screening method NEGATIVE NEGATIVE Urine cannabinoids detection by screening method N EGATIVE NEGATIVE Urine opiates detection by screening method NEGATI VE NEGATIVE Urine barbiturates detection NEGATIVE N EGATIVE Screening urine tricyclic antidepressants detection NEGATIVE NEGATIVE Urine methadone detection by screening method NEGA TIVE NEGATIVE Urine oxycodone detection NEGATIVE NEGA TIVE Urine propoxyphene detection NEGATIVE N EGATIVE Complete semen analysis - 07/07/18 10:25 Sperm count 12 [mil_us] 60-200 Semen volume measurement 1.1 mL 1.5-5 .0 [place] motile detection in semen by light microsc opy 40 NRG [place] [morphology] in semen 58 NRG [place].abnormal/100 spermatozoa 42 % NRG Complete semen analysis - 12/14/18 12:30 Sperm count 52 [mil_us] 60-200 Semen volume measurement 3.0 mL 1.5-5 .0 [place] motile detection in semen by light microsc opy 82 NRG [place] [morphology] in semen 70 NRG [place].abnormal/100 spermatozoa 30 % NRG Complete semen analysis - 03/01/19 16:40 Sperm count 58 [mil_us] 60-200 Semen volume measurement 1.5 mL 1.5-5 .0 [place] motile detection in semen by light microsc opy 62 NRG [place] [morphology] in semen 58 NRG [place].abnormal/100 spermatozoa 42 % NRG Encounters ACCT No. Visit Date/Time Discharge Status Pt. Type Provider Facility Loc./Unit Complaint [id number] 03/01/2019 16:17:00 23:59:59 CLS Outpatient CONCEPCION MYERS MD [facility] LAB GONADISM [id number] 02/27/2019 19:20:00 20:10:00 DIS Emergency UGO ENRIQUE ENGRAVER LETTER [facility] ER L FACIAL TINGLING/NUMBN ESS/R EAR HEARING ISSUES [id number] 12/14/2018 12:35:00 23:59:59 CLS Outpatient CONCEPCION MYERS MD [facility] LAB INFERTILITY [id number] 07/07/2018 10:13:00 23:59:59 CLS Outpatient KRISTA BATISTA ENGRAVER LETTER [facility] LAB Z31.41 [id number] 06/22/2018 18:54:00 20:14:00 DIS Emergency MJ BISHOP MD [facility] ER FACE NUMBNESS [id number] 04/29/2018 21:08:00 01:10:00 DIS Emergency DANNY NAIR DO a [facility] ER FELL OFF LADDER,POSS LO C [id number] 01/25/2013 20:10:00 07:35:00 DIS Outpatient XIN WINSLOW [facility] SLEEP KIRK,CHOKING,GASPING
== END 2019-02-27 20:10 | disposition home or self-care (01) ==
LOC: EDUNIT# 19:18 → ER 19:20
DX: R20.0 Anesthesia of skin (principal); R20.2 Paresthesia of skin; E11.9 Type 2 diabetes mellitus without complications; Z79.52 Long term (current) use of systemic steroids; Z77.22 Contact with and (suspected) exposure to environmental tobacco smoke (acute) (chronic)
CPT/HCPCS: 99283

== ENCOUNTER 2019-03-01 16:17 | Outpatient (RCR) | payer BC ==
[~2019-03-01 16:17] MED LIST changes: +AMOX500C2 PO; -VALA1000 PO; +VALA10007 PO
[2019-03-01 20:36] LABS: SEMEN VOLUME 1.5 ML (1.5-5.0)
[2019-05-28] MEDS ORDERED: ACYC400T PO (20:45)
[2019-05-28] MEDS ORDERED: PRD20T PO (20:45)
== END 2019-05-30 | disposition home or self-care (01) ==
LOC: LAB 16:17
PROVIDERS: ATTEND Urology
DX: E29.1 Testicular hypofunction (principal)
CPT/HCPCS: 89320

== ENCOUNTER 2019-05-07 20:26 | Emergency (ER) | payer BC ==
[~2019-05-07] VITALS: Ht 172 cm; Wt 131.0 kg
[~2019-05-07 20:26] MED LIST changes: +VALA1000 PO; -VALA10007 PO
[2019-05-07] MEDS ORDERED: KETOROLAC 30 MG/ML VIAL IVP ONE (21:15)
[2019-05-07 21:17] LABS: BASOPHILS % (AUTO) 0 % (0-10); EOSINOPHILS # (AUTO) 0.1 10^3/uL (0.0-0.3); EOSINOPHILS % (AUTO) 1 % (0-10); HEMATOCRIT 41 % (40-54); HEMOGLOBIN 13.9 G/DL (13.3-17.7); LYMPHOCYTES # (AUTO) 2.3 X 10^3 (1.0-4.0); LYMPHOCYTES % (AUTO) 21 % (12-44); MEAN CORPUSCULAR HEMOGLOBIN 29 PG (25-34); MEAN CORPUSCULAR HGB CONC 34 G/DL (32-36); MEAN CORPUSCULAR VOLUME 85 FL (80-99); MEAN PLATELET VOLUME 9.4 FL (7.4-10.4); MONOCYTES # (AUTO) 0.7 X 10^3 (0.0-1.0); MONOCYTES % (AUTO) 6 % (0-12); NEUTROPHILS # (AUTO) 8.1 X 10^3 (1.8-7.8); NEUTROPHILS % (AUTO) 72 % (42-75); PLATELET COUNT 290 10^3/uL (130-400); RED CELL DISTRIBUTION WIDTH 12.9 % (10.0-14.5); WHITE BLOOD COUNT 11.2 10^3/uL (4.3-11.0)
--- NOTE | 2019-05-07 21:20 | Diagnostic Imaging Report ---
INDICATION: Chest pain Comparison is made to the study of 04/29/2018. PA and lateral views of the chest are obtained. FINDINGS: Heart size and pulmonary vascularity are within normal limits, and the lungs are clear, bilaterally. IMPRESSION: Unremarkable chest. Dictated by: Dictated on workstation # [id number]
[2019-05-07 21:35] LABS: INR 0.9 (0.8-1.4); PROTHROMBIN TIME PATIENT 12.5 SEC (12.2-14.7)
[2019-05-07 21:44] LABS: ALANINE AMINOTRANSFERASE 22 U/L (0-55); ALBUMIN 4.1 GM/DL (3.2-4.5); ALKALINE PHOSPHATASE 42 U/L (40-136); BILIRUBIN,TOTAL 0.3 MG/DL (0.1-1.0); BUN/CREATININE RATIO 16; CALCIUM 8.7 MG/DL (8.5-10.1); CARBON DIOXIDE 23 MMOL/L (21-32); CHLORIDE 105 MMOL/L (98-107); CREATININE SERUM 0.89 MG/DL (0.60-1.30); GFR ESTIMATED > 60; GLUCOSE 151 MG/DL (70-105); POTASSIUM 3.5 MMOL/L (3.6-5.0); SODIUM 138 MMOL/L (135-145); TOTAL PROTEIN 7.5 GM/DL (6.4-8.2)
--- NOTE | 2019-05-07 22:24 | ED Chest Pain ---
General Chief Complaint: Respiratory Problems Stated Complaint: SOB,ANXIOUS Nursing Triage Note: PT PRESENTS TO THE ED C/O SOB AND FEELING LIKE HE IS ANXIOUS BUT THE PT AND HIS BOTH STATE THE PT IS NORMALLY OF A CALM DEMEANOR AND HAS NO HX OF ANXIETY. PT STATES THAT YESTERDAY AT WORK HE HAD A SINGLE EPISODE OF CHEST PAIN WHILE ON THE FORKLIFT, HAS FELT UNEASY SINCE THEN. Nursing Sepsis Screen: No Definite Risk Source: patient Exam Limitations: no limitations History of Present Illness Date Seen by Provider: May 07, 2019 Time Seen by Provider: 20:56 Initial Comments This 28-year-old young man presents to the emergency room with complaints of shortness of breath and chest pain. He rates the pain as 8/10 at its worst. It is more mild now. This sensation is ill-defined and not necessarily painful but creates an uneasy feeling. He is afebrile and vital signs are normal. He's not had any significant cough. Patient states this sensation is unusual for review does not normally have issues with anxiety. He denies any alcohol consumption since the [facility] and he does not smoke or use drugs. He has had some achiness in his legs recently been no swelling, heat, or erythema. The achiness is equal bilaterally. It feels as though he is "getting the flu". He denies any recent travel or sedentary periods of time. Allergies and Home Medications Allergies Coded Allergies: No Known Drug Allergies (Unverified , 04/29/18) Home Medications Amoxicillin 500 Mg Capsule, 500 MG PO TID Prescribed by: UGO ENRIQUE on 02/27/191951 Prednisone 20 Mg Tab, 40 MG PO DAILY Prescribed by: MJ BISHOP on 06/22/181934 Prednisone 20 Mg Tab, 40 MG PO DAILY Prescribed by: UGO ENRIQUE on 02/27/191951 Valacyclovir HCl 1,000 Mg Tablet, 1,000 MG PO BID Prescribed by: MJ BISHOP on 06/22/181934 Valacyclovir HCl 1,000 Mg Tablet, 1,000 MG PO TID Prescribed by: UGO ENRIQUE on 02/27/191951 Patient Home Medication List Home Medication List Reviewed: Yes Review of Systems Review of Systems Constitutional: no symptoms reported EENTM: No Symptoms Reported Respiratory: See HPI Cardiovascular: See HPI Gastrointestinal: No Symptoms Reported Genitourinary: No Symptoms Reported Musculoskeletal: see HPI Skin: no symptoms reported Psychiatric/Neurological: See HPI Endocrine: No Symptoms Reported Hematologic/Lymphatic: No Symptoms Reported Past Xhovshn-Jddjbs-Nsykxu Hx Past Med/Social Hx: Reviewed Nursing Past Med/Soc Hx Patient Social History Alcohol Use: Occasionally Uses Alcohol Beverage of Choice: Beer Recreational Drug Use: No Smoking Status: Never a Smoker Type Used: Smokeless Tobacco 2nd Hand Smoke Exposure: Yes Recent Foreign Travel: No Contact w/Someone Who Travel: No Recent Infectious Disease Expo: No Recent Hopitalizations: No Physical Abuse: No Sexual Abuse: No Mistreated: No Fear: No Immunizations Up To Date Tetanus Booster (TDap): Less than 5yrs Seasonal Allergies Seasonal Allergies: No Past Medical History Surgeries: No Respiratory: No Cardiac: No Neurological: No Genitourinary: No Gastrointestinal: No Musculoskeletal: No Endocrine: Yes Diabetes, Non-Insulin dep HEENT: No Cancer: No Psychosocial: No Integumentary: No Blood Disorders: No Physical Exam Vital Signs Vital Signs - First Documented 05/07/19 20:50 Temp 37.7 Pulse 78 Resp 18 B/P (MAP) 128/76 (93) Pulse Ox 99 O2 Delivery Room Air Capillary Refill : Less Than 3 Seconds Height, Weight, BMI Height: 5'8.00" Weight: 287lbs. 0oz. 130.366501cp; 44.00 BMI Method:Stated General Appearance: No Apparent Distress, WD/WN, Obese HEENT: PERRL/EOMI, Normal ENT Inspection Neck: Normal Inspection Respiratory: Lungs Clear, Normal Breath Sounds, No Accessory Muscle Use, No Respiratory Distress, Other (pain reproducible by palpation in the left upper chest) Cardiovascular: Regular Rate, Rhythm, No Edema, No Murmur, Normal Peripheral Pulses Gastrointestinal: Non Tender, Soft Extremity: Normal Inspection, Non Tender, No Calf Tenderness, No Pedal Edema Neurologic/Psychiatric: Alert, Oriented x3, No Motor/Sensory Deficits, Normal Mood/Affect, signwriter II-XII Norm as Tested Skin: Normal Color, Warm/Dry Progress/Results/Core Measures Results/Orders Lab Results Laboratory Tests Test 05/07/19 21:08 Range/Units White Blood Count 11.2 H 4.3-11.0 10^3/uL Red Blood Count 4.82 4.35-5.85 10^6/uL Hemoglobin 13.9 13.3-17.7 G/DL Hematocrit 41 40-54 % Mean Corpuscular Volume 85 80-99 FL Mean Corpuscular Hemoglobin 29 25-34 PG Mean Corpuscular Hemoglobin Concent 34 32-36 G/DL Red Cell Distribution Width 12.9 10.0-14.5 % Platelet Count 290 130-400 10^3/uL Mean Platelet Volume 9.4 7.4-10.4 FL Neutrophils (%) (Auto) 72 42-75 % Lymphocytes (%) (Auto) 21 12-44 % Monocytes (%) (Auto) 6 0-12 % Eosinophils (%) (Auto) 1 0-10 % Basophils (%) (Auto) 0 0-10 % Neutrophils # (Auto) 8.1 H 1.8-7.8 X 10^3 Lymphocytes # (Auto) 2.3 1.0-4.0 X 10^3 Monocytes # (Auto) 0.7 0.0-1.0 X 10^3 Eosinophils # (Auto) 0.1 0.0-0.3 10^3/uL Basophils # (Auto) 0.0 0.0-0.1 10^3/uL Prothrombin Time 12.5 12.2-14.7 SEC INR Comment 0.9 0.8-1.4 Activated Partial Thromboplast Time 29 24-35 SEC Sodium Level 138 135-145 MMOL/L Potassium Level 3.5 L 3.6-5.0 MMOL/L Chloride Level 105 98-107 MMOL/L Carbon Dioxide Level 23 21-32 MMOL/L Anion Gap 10 5-14 MMOL/L Blood Urea Nitrogen 14 7-18 MG/DL Creatinine 0.89 0.60-1.30 MG/DL Estimat Glomerular Filtration Rate > 60 BUN/Creatinine Ratio 16 Glucose Level 151 H 70-105 MG/DL Calcium Level 8.7 8.5-10.1 MG/DL Corrected Calcium 8.6 8.5-10.1 MG/DL Magnesium Level 2.0 1.6-2.4 MG/DL Total Bilirubin 0.3 0.1-1.0 MG/DL Aspartate Amino Transf (AST/SGOT) 15 5-34 U/L Alanine Aminotransferase (ALT/SGPT) 22 0-55 U/L Alkaline Phosphatase 42 40-136 U/L Myoglobin 48.4 10.0-92.0 NG/ML Troponin I < 0.028 <0.028 NG/ML Total Protein 7.5 6.4-8.2 GM/DL Albumin 4.1 3.2-4.5 GM/DL Micro Results Microbiology 05/07/19 Influenza Types A,B Antigen (JOSE) - Final, Complete My Orders Orders - PATRICK VIDAL MD Chest Pa/Lat (2 View) (05/07/19 21:05) Cbc With Automated Diff (05/07/19 21:05) Magnesium (05/07/19 21:05) Ekg Tracing (05/07/19 21:05) Comprehensive Metabolic Panel (05/07/19 21:05) Myoglobin Serum (05/07/19 21:05) Protime With Inr (05/07/19 21:05) Partial Thromboplastin Time (05/07/19 21:05) O2 (05/07/19 21:05) Monitor-Rhythm Ecg Trace Only (05/07/19 21:05) Ed Iv/Invasive Line Start (05/07/19 21:05) Troponin I (05/07/19 21:05) Influenza A And B Antigens (05/07/19 21:05) Ketorolac Injection (Toradol Injection) (05/07/19 21:15) Medications Given in ED Current Medications Medications Dose Ordered Sig/Frankie Route Start Time Stop Time Status Last Admin Dose Admin Ketorolac Tromethamine 30 mg ONCE ONCE IVP 05/07/19 21:15 05/07/19 21:16 DC 05/07/19 21:40 30 MG Vital Signs/I&O 05/07/19 05/07/19 05/07/19 05/07/19 20:50 20:50 21:40 22:31 Temp 37.7 37.1 36.9 Pulse 78 89 Resp 18 18 B/P (MAP) 128/76 (93) 134/76 (93) Pulse Ox 99 99 98 O2 Delivery Room Air Room Air Room Air Blood Pressure Mean: 93 Progress Progress Note : Progress Note Workup was unremarkable. Toradol seemed to improve his discomfort. Return precautions discussed. I suspect patient may have a viral illness causing his symptoms. Initial ECG Impression Date: May 07, 2019 Initial ECG Impression Time: 20:56 Initial ECG Rate: 84 Initial ECG Rhythm: Normal Sinus Initial ECG Intervals: Normal Initial ECG Impression: Normal Comment Normal sinus rhythm with no ST elevation or depression. No abnormal intervals or axis deviation. Diagnostic Imaging Diagonstic Imaging: Xray Plain Films/CT/US/NM/MRI: chest Comments Chest x-ray viewed by me. Report reviewed. See report below: NAME: [facility] REC#: [id number] PT STATUS: REG ER : 1990 PHYSICIAN: PATRICK VIDAL MD ADMIT DATE: 05/07/19/ER Signed Date of Exam:05/07/19 CHEST PA/LAT (2 VIEW) INDICATION: Chest pain Comparison is made to the study of 04/29/2018. PA and lateral views of the chest are obtained. FINDINGS: Heart size and pulmonary vascularity are within normal limits, and the lungs are clear, bilaterally. IMPRESSION: Unremarkable chest. Dictated by: Dictated on workstation # [id number] Dict: 05/07/192116 Trans: 05/07/192204 [facility] [id number] Interpreted by: JIMBO JETT MD Electronically signed by: JIMBO JETT MD 05/07/192204 Departure Impression Primary Impression: Chest wall pain Additional Impressions: Anxiousness Floaters in visual field Qualified Codes: H43.393 - Other vitreous opacities, bilateral Disposition: 01 HOME, SELF-CARE Condition: Stable Departure-Patient Inst. Decision time for Depature: 22:21 [place] [facility] [place] Primary Care Physician KRISTA BATISTA APRN (Family) Primary Care Physician Patient Instructions: Chest Pain, Floaters in the Eye Add. Discharge Instructions: For your chest discomfort you may take Tylenol (acetaminophen) up to 1000 mg every 6 hours as needed and/or ibuprofen up to 600 mg every 6 hours as needed. 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 Follow-up with your primary care provider soon as possible. Return to the emergency room if you have worsening symptoms or other new concerns. All discharge instructions reviewed with patient and/or family. Voiced understanding. Copy Copies To 1: OLIVER COX JOSHUA T MD May 07, 2019 22:24
[2019-05-07 22:31] VITALS: BP 134/76
--- OUTSIDE RECORDS SUMMARY | 2019-05-16 21:09 | XMS REPORT | Continuity of Care Document ---
Author Organization Unknown Address Unknown Phone Unavailable Allergies Active Description Code Type Severity Reaction Onset Reported/Identified Relationship to Patient Clinical Status Yes No Known Drug Allergies [id number] Drug Allergy Unknown N/A 04/29/2018 Medications There [...] DANNY Luisa Ot E66.9 OBESITY, UNSPECIFIED 05/02/2018 [facility] DANNY Luisa Ot F17.220 NICOTINE DEPENDENCE, CHEWING TOBACCO, UN 05/02/2018 [place] , DANNY Luisa Ot R40.214 2 COMA SCALE, EYES OPEN, SPONTANEOUS, EMR 05/02/2018 [facility] DANNY K Ot R40.225 2 COMA SCALE, BEST VERBAL RESPONSE, ORIENT 05/02/2018 [facility] DANNY Luisa Ot R40.236 2 COMA SCALE, BEST MOTOR RESPONSE, OBEYS C 05/02/2018 JOANIE DANNY Ot R51 HEADACHE 05/02/2018 JOANIE DO DANNY K Ot S00.03X A CONTUSION OF SCALP, INITIAL ENCOUNTER 05/02/2018 [facility] DANNY Luisa Ot S09.90X A UNSPECIFIED INJURY OF HEAD, INITIAL ENCO 05/02/2018 JOANIE DANNY Luisa Ot S16.1XX A STRAIN OF MUSCLE, FASCIA AND TENDON AT N 05/02/2018 [facility] DANNY Luisa Ot W11.XXX A FALL ON AND FROM LADDER, INITIAL ENCOUNT 05/02/2018 JOANIE DANNY Luisa Ot W22.09X A STRIKING AGAINST OTHER STATIONARY OBJECT 05/02/2018 JOANIE DO DANNY Luisa Ot Z68.41 BODY MASS INDEX (BMI) 40.0-44.9, ADULT 05/05/2018 JOANIE DANNY Luisa Ot E11.9 TYPE 2 DIABETES MELLITUS WITHOUT COMPLIC 05/05/2018 JOANIE DANNY Luisa Ot E66.9 OBESITY, UNSPECIFIED 05/05/2018 [facility] DANNY Moran Ot F17.220 NICOTINE DEPENDENCE, CHEWING TOBACCO, UN 05/05/2018 [place] DANNY Moran Ot R40.214 2 COMA SCALE, [...] ENCOUNTER FOR FERTILITY TESTING 12/18/2018 CONCEPCION MYERS MD, Ot N46.9 MALE INFERTILITY, UNSPECIFIED 03/09/2019 CONCEPCION MYERS MD Ot Z01.8 9 ENCOUNTER FOR OTHER SPECIFIED SPECIAL EX 04/12/2019 CONCEPCION MYERS MD Ot Z01.8 9 ENCOUNTER FOR OTHER SPECIFIED SPECIAL EX 05/14/2019 UGO ENRIQUE William FEATHER WASHER Ot F41 .9 ANXIETY DISORDER, UNSPECIFIED 05/14/2019 UGO ENRIQUE APRN Ot R06.02 SHORTNESS OF BREATH 05/14/2019 KLAUS UGO William HUDDLESTON Ot Z77.22 CNTCT W AND EXPSR TO ENVIRON TOBACCO SMO Procedures There is no data. Results Test [...] NRG Spermatozoa.abnormal/100 spermatozoa 42 % NRG Complete blood count (CBC) with automate d white blood cell (WBC) differential - 05/07/19 21:08 Blood leukocytes automated count (number/volume) 11.2 10*3/uL 4.3-11.0 Blood erythrocytes automated count (number/volume) 4.82 10*6/uL 4.35-5.85 Venous blood hemoglobin measurement (mass/volume) 13.9 g/dL 13.3-17.7 Blood hematocrit (volume fraction) 41 % 40-54 Automated erythrocyte mean corpuscular volume 85 [ foz_us] 80-99 Automated erythrocyte mean corpuscular h emoglobin (mass per erythrocyte) 29 pg 25-34 Automated erythrocyte mean corpuscular h emoglobin concentration measurement (mass/volume) 34 g/dL 32-36 Automated erythrocyte distribution width ratio 12. 9 % 10.0- 14.5 Automated blood platelet count (count/volume) 290 10*3/uL 130-400 Automated blood platelet mean volume measurement 9.4 [foz_us] 7.4-10.4 Automated blood neutrophils/100 leukocytes 72 % 42-75 Automated blood lymphocytes/100 leukocytes 21 % 12-44 Blood monocytes/100 leukocytes 6 % 0-12 Automated blood eosinophils/100 leukocytes 1 % 0-10 Automated blood basophils/100 leukocytes 0 % 0-10 Blood neutrophils automated count (number/volume) 8.1 10*3 1.8-7.8 Blood lymphocytes automated count (number/volume) 2.3 10*3 1.0-4.0 Blood monocytes automated count (number/volume) 0. 7 10*3 0.0-1.0 Automated eosinophil count 0.1 10*3/uL 0 .0-0.3 Automated blood basophil count (count/volume) 0.0 10*3/uL 0.0-0.1 PT panel in platelet poor plasma by coag ulation assay - 05/07/19 21:08 Prothrombin time (PT) in platelet poor plasma by coagu lation assay 12.5 s 12.2-14.7 INR in platelet poor plasma or blood by coagulation as say 0.9 0.8-1.4 Activated partial thromboplastin time (a PTT) in platelet poor plasma bycoagulation assay - 05/07/19 21:08 Activated partial thromboplastin time (a PTT) in platelet poor plasma bycoagulation assay 29 s 24-35 Influenza virus A and B antigen detectio n - 05/07/19 21:08 FLU RESULT NEGATIVE FOR INFLUENZA A AND B ANTIGENS BY IA [facility] Comprehensive metabolic panel - 05/07/19 21:08 Serum or plasma sodium measurement (moles/volume) 138 mmol/L 135-145 Serum or plasma potassium measurement (moles/volume) 3.5 mmol/L 3.6-5.0 Serum or plasma chloride measurement (moles/volume) 105 mmol/L 98-107 Carbon dioxide 23 mmol/L 21-32 Serum or plasma anion gap determination (moles/volume) 10 mmol/L 5-14 Serum or plasma urea nitrogen measurement (mass/volume ) 14 mg/dL 7-18 Serum or plasma creatinine measurement (mass/volume) 0.89 mg/dL 0.60-1.30 Serum or plasma urea nitrogen/creatinine mass ratio 16 [facility] Serum or plasma creatinine measurement w ith calculation of estimated glomerular filtration rate > [facility] Serum or plasma glucose measurement (mass/volume) 151 mg/dL 70-105 Serum or plasma calcium measurement (mass/volume) 8.7 mg/dL 8.5-10.1 Serum or plasma total bilirubin measurement (mass/volu me) 0.3 mg/dL 0.1-1.0 Serum or plasma alkaline phosphatase juve surement (enzymatic activity/volume) 42 U/L 40-136 Serum or plasma aspartate aminotransfera se measurement (enzymatic activity/volume) 15 U/L 5-34 Serum or plasma alanine aminotransferase measurement (enzymatic activity/volume) 22 U/L 0-55 Serum or plasma protein measurement (mass/volume) 7.5 g/dL 6.4-8.2 Serum or plasma albumin measurement (mass/volume) 4.1 g/dL 3.2-4.5 CALCIUM CORRECTED 8.6 mg/dL 8.5-10.1 Magnesium - 05/07/19 21:08 Magnesium 2.0 mg/dL 1.6-2.4 Serum or plasma troponin i.cardiac measu rement (mass/volume) - 05/07/19 21:08 Serum or plasma troponin i.cardiac measurement (mass/v olume) < ng/mL <0.028 Myoglobin, serum - 05/07/19 21:08 Myoglobin, serum 48.4 ng/mL 10.0-92.0 Serum or plasma lithium measurement (mol es/volume) - 05/09/19 18:18 BNP PT 930.6 pg/mL <100.0 Fibrin D-dimer FEU measurement in platel et poor plasma (mass/volume) - 05/09/19 18:38 Fibrin D-dimer FEU measurement in platelet poor plasma (mass/volume) 0.35 ug/mL 0.00-0.49 Encounters ACCT No. Visit Date/Time Discharge Status Pt. Type Provider Facility Loc./Unit Complaint [id number] 05/09/2019 18:07:00 19:10:00 DIS Outpatient UGO ENRIQUE APRN [facility] ER ANXIETY [id number] 05/07/2019 20:30:00 22:31:00 DIS Emergency YOUNG SHANKS, PATRIKC Rodriguez [facility] ER SOB,ANXIOUS [id number] 03/01/2019 16:17:00 23:59:59 CLS Outpatient CONCEPCION MYERS MD [facility] LAB GONADISM [id number] 02/27/2019 19:20:00 20:10:00 DIS Emergency UGO ENRIQUE APRN [facility] ER L FACIAL TINGLING/NUMBN ESS/R EAR HEARING ISSUES [id number] 12/14/2018 12:35:00 23:59:59 CLS Outpatient CONCEPCION MYERS MD [facility] LAB INFERTILITY [id number] 07/07/2018 10:13:00 23:59:59 CLS Outpatient KRISTA BATISTA APRN [facility] LAB Z31.41 [id number] 06/22/2018 18:54:00 019 20:14:00 DIS Emergency MJ BISHOP MD [facility] ER FACE NUMBNESS [id number] 04/29/2018 21:08:00 019 01:10:00 DIS Emergency DANNY NAIR DO [facility] ER FELL OFF LADDER,POSS LO C [id number] 01/25/2013 20:10:00 013 07:35:00 DIS Outpatient XIN WINSLOW [facility] SLEEP KIRK,CHOKING,GASPING
== END 2019-05-07 22:31 | disposition home or self-care (01) ==
LOC: EDUNIT# 20:26 → ER 20:30
DX: R07.89 Other chest pain (principal); F41.9 Anxiety disorder, unspecified; H43.399 Other vitreous opacities, unspecified eye; Z79.52 Long term (current) use of systemic steroids; Z77.22 Contact with and (suspected) exposure to environmental tobacco smoke (acute) (chronic)
CPT/HCPCS: 36415; 71046; 80053; 83735; 83874; 84484; 85025; 85610; 85730; 87804; 93005; 93041; 96374

== ENCOUNTER 2019-05-09 18:06 | Emergency (ER) | payer BC ==
[~2019-05-09] VITALS: Ht 172 cm; Wt 127.0 kg
[2019-05-09] MEDS ORDERED: ALPRAZolam 0.25 MG (XANAX) TAB PO ONE (18:15)
--- NOTE | 2019-05-09 18:36 | ED General ---
General Chief Complaint: General Problems/Pain Stated Complaint: ANXIETY Nursing Triage Note: PT COMPLAINS OF SOA WITH CHEST PRESSURE AT TIMES. HAS BEEN SEEN HERE RECENTLY FOR THIS AND WAS SEEN BY [facility] TODAY AND TOLD TO COME TO ER TO BE CHECKED FOR A BLOOD CLOT. Nursing Sepsis Screen: No Definite Risk Source of Information: Patient Exam Limitations: No Limitations History of Present Illness Date Seen by Provider: May 09, 2019 Time Seen by Provider: 18:35 Initial Comments Sent to ER by private vehicle from [facility] to be evaluated for pulmonary embolism. He's had anxiety, shortness of breath, chest wall tightness and pain.Was seen here yesterday and evaluated with labs and imaging study without abnormality, diagnosed with anxiety. He does report that he still feels very anxious. Timing/Duration: 1-2 Days Severity: Moderate Allergies and Home Medications Allergies Coded Allergies: No Known Drug Allergies (Unverified , 04/29/18) Home Medications Amoxicillin 500 Mg Capsule, 500 MG PO TID Prescribed by: UGO ENRIQUE on 02/27/191951 Prednisone 20 Mg Tab, 40 MG PO DAILY Prescribed by: MJ BISHOP on 06/22/181934 Prednisone 20 Mg Tab, 40 MG PO DAILY Prescribed by: UGO ENRIQUE on 02/27/191951 Valacyclovir HCl 1,000 Mg Tablet, 1,000 MG PO BID Prescribed by: MJ BISHOP on 06/22/181934 Valacyclovir HCl 1,000 Mg Tablet, 1,000 MG PO TID Prescribed by: UGO ENRIQUE on 02/27/191951 Patient Home Medication List Home Medication List Reviewed: Yes Review of Systems Review of Systems Constitutional: see HPI EENTM: see HPI Respiratory: see HPI, short of breath Cardiovascular: no symptoms reported Genitourinary: no symptoms reported Musculoskeletal: no symptoms reported Skin: no symptoms reported Psychiatric/Neurological: See HPI, Anxiety Hematologic/Lymphatic: No Symptoms Reported Past Edooljd-Tcabyb-Gnhmng Hx Patient Social History Alcohol Use: Occasionally Uses Alcohol Beverage of Choice: Beer Recreational Drug Use: No Smoking Status: Never a Smoker Type Used: Smokeless Tobacco 2nd Hand Smoke Exposure: Yes Recent Foreign Travel: No Contact w/Someone Who Travel: No Recent Infectious Disease Expo: No Recent Hopitalizations: No Immunizations Up To Date Tetanus Booster (TDap): Less than 5yrs Seasonal Allergies Seasonal Allergies: No Past Medical History Surgeries: No Respiratory: No Cardiac: No Neurological: No Genitourinary: No Gastrointestinal: No Musculoskeletal: No Endocrine: Yes Diabetes, Non-Insulin dep HEENT: No Cancer: No Psychosocial: Yes Anxiety Integumentary: No Blood Disorders: No Physical Exam Vital Signs Vital Signs - First Documented 05/09/19 18:19 Temp 36.5 Pulse 78 Resp 16 B/P (MAP) 143/88 (106) Pulse Ox 99 O2 Delivery Room Air Capillary Refill : Less Than 3 Seconds Height, Weight, BMI Height: 5'8.00" Weight: 287lbs. 0oz. 130.582917cx; 42.00 BMI Method:Stated General Appearance: No Apparent Distress, WD/WN, Obese Eyes: Bilateral Eye Normal Inspection, Bilateral Eye PERRL HEENT: PERRL/EOMI, TMs Normal Respiratory: Normal Breath Sounds, No Accessory Muscle Use, No Respiratory Distress Gastrointestinal: Normal Bowel Sounds, Non Tender, Soft Extremity: Normal Capillary Refill Neurologic/Psychiatric: Alert, Oriented x3 Skin: Normal Color, Warm/Dry Progress/Results/Core Measures Suspected Sepsis Recent Fever Within 48 Hours: No Infection Criteria Present: None New/Unexplained Altered Menta: No Sepsis Screen: No Definite Risk SIRS Temperature: Pulse: 78 Respiratory Rate: 16 Blood Pressure 143 /88 Mean: 106 Results/Orders Lab Results Laboratory Tests Test 05/09/19 18:18 05/09/19 18:38 Range/Units My Orders Orders - UGO ENRIQUE APRN Alprazolam Tablet (Xanax Tablet) (05/09/19 18:15) Fibrin Degradation Products (05/09/19 18:26) BNP (05/09/19 18:33) Medications Given in ED Current Medications Medications Dose Ordered Sig/Frankie Route Start Time Stop Time Status Last Admin Dose Admin Alprazolam 0.5 mg ONCE ONCE PO 05/09/19 18:15 05/09/19 18:16 DC 05/09/19 18:28 0.5 MG Vital Signs/I&O 05/09/19 18:19 Temp 36.5 Pulse 78 Resp 16 B/P (MAP) 143/88 (106) Pulse Ox 99 O2 Delivery Room Air Capillary Refill : Less Than 3 Seconds Blood Pressure Mean: 106 Departure Impression Primary Impression: Anxiety Disposition: 01 HOME, SELF-CARE Condition: Stable Departure-Patient Inst. Decision time for Depature: :01 Referrals: [facility] (PCP) Primary Care Physician KRISTA BATISTA APRN (Family) Primary Care Physician Patient Instructions: Anxiety, Adult (DC) UGO ENRIQUE APRN May 09, 2019 18:36
[2019-05-09 19:10] VITALS: BP 143/88
== END 2019-05-09 19:10 | disposition home or self-care (01) ==
LOC: EDUNIT# 18:06 → ER 18:07
DX: F41.9 Anxiety disorder, unspecified (principal); Z77.22 Contact with and (suspected) exposure to environmental tobacco smoke (acute) (chronic)
CPT/HCPCS: 36415; 83880; 85379

== ENCOUNTER 2019-05-28 19:23 | Emergency (ER) | payer BC ==
[~2019-05-28] VITALS: Ht 172 cm; Wt 127.0 kg
[~2019-05-28 19:23] MED LIST changes: -VALA1000 PO; +VALA10007 PO
--- NOTE | 2019-05-28 19:49 | NUR ---
PT BROUGHT TO ROOM 6
--- NOTE | 2019-05-28 20:41 | ED Neurological Problem ---
General Chief Complaint: Facial Problems Stated Complaint: FACIAL NUMBNESS Nursing Triage Note: has facial numbness on L side of face that started 1 week ago, was diagnosed with bells palsy last week, symptoms improved but is now returning, pt now has pain under L eye and L ear feels like there is water in it Nursing Sepsis Screen: No Definite Risk Source: patient, spouse Exam Limitations: no limitations History of Present Illness Date Seen by Provider: May 28, 2019 Time Seen by Provider: 20:10 Initial Comments The patient presents to ER by private conveyance from the walk-in clinic with chief complaint that he was having some paresthesias under his left eye and at the corner of his left face with some mild droopage. 2 weeks ago he went to the [facility] for similar symptoms and was diagnosed with his third bout of Rivera's palsy. He was put on 5 days of steroids which did make significant improvement of his symptoms which went away by day 3. Out today they are coming back. He thought maybe he needed some more steroids. He also did not receive any antivirals that time. He was told by the practitioner that because he takes Clomid for hypogonadism that he may be at higher risk for a clot and that might be the reason why he is having symptoms. He was instructed to come to the ER to be worked up for a clot in his head. He has no history of recent immobilization surgeries, long trips, smoking, control hormones except for the SERM. No familial history of clots. No evidence of DVT, leg swelling tightness etc. No shortness of breath. He was here a few weeks ago with the same concerned because he was short of breath that he may have had a pulmonary embolism and had a n egative d-dimer and was diagnosed with anxiety attack. Allergies and Home Medications Allergies Coded Allergies: No Known Drug Allergies (Unverified , 04/29/18) Home Medications Amoxicillin 500 Mg Capsule, 500 MG PO TID Prescribed by: UGO ENRIQUE on 02/27/191951 Prednisone 20 Mg Tab, 40 MG PO DAILY Prescribed by: MJ BISHOP on 06/22/181934 Prednisone 20 Mg Tab, 40 MG PO DAILY Prescribed by: UGO ENRIQUE on 02/27/191951 Valacyclovir HCl 1,000 Mg Tablet, 1,000 MG PO BID Prescribed by: MJ BISHOP on 3/28/19 1935 Valacyclovir HCl 1,000 Mg Tablet, 1,000 MG PO TID Prescribed by: UGO ENRIQUE on 02/27/191951 Patient Home Medication List Home Medication List Reviewed: Yes Review of Systems Review of Systems Constitutional: No chills, No fever Eyes: Denies Blindness, Denies Blurred Vision Ears, Nose, Mouth, Throat: denies ear pain, denies ear discharge Respiratory: No cough, No short of breath Cardiovascular: No edema, No Hx of Intervention Gastrointestinal: No abdominal pain, No constipation, No nausea Genitourinary: No discharge, No dysuria Musculoskeletal: No back pain, No joint pain All Other Systems Reviewed Negative Unless Noted: Yes Past Dxyvrfu-Xiuhgo-Wromao Hx Patient Social History Alcohol Use: Occasionally Uses Number of Drinks Today: AA Alcohol Beverage of Choice: Beer Recreational Drug Use: No Type Used: Smokeless Tobacco 2nd Hand Smoke Exposure: Yes Recent Foreign Travel: No Contact w/Someone Who Travel: No Recent Infectious Disease Expo: No Recent Hopitalizations: No Immunizations Up To Date Tetanus Booster (TDap): Less than 5yrs Seasonal Allergies Seasonal Allergies: No Past Medical History Surgeries: No Respiratory: No Cardiac: No Neurological: No Genitourinary: No Gastrointestinal: No Musculoskeletal: No Endocrine: Yes Diabetes, Non-Insulin dep HEENT: No Cancer: No Psychosocial: Yes Anxiety Integumentary: No Blood Disorders: No Physical Exam Vital Signs Vital Signs - First Documented 05/28/19 19:42 Temp 37.1 Pulse 88 Resp 18 B/P (MAP) 132/82 (99) Capillary Refill : Less Than 3 Seconds Height, Weight, BMI Height: 5'8.00" Weight: 287lbs. 0oz. 130.427123nn; 42.00 BMI Method:Stated General Appearance: WD/WN, no apparent distress HEENT: PERRL/EOMI, normal ENT inspection, pharynx normal, TM abnormal (R) (bilateral TMs are occluded, mucoid, retracted without injection or loss of tympanic membrane landmarks.), TM abnormal (L) Respiratory: chest non-tender, lungs clear, normal breath sounds, no respiratory distress, no accessory muscle use Cardiovascular: normal peripheral pulses, regular rate, rhythm Peripheral Pulses: 2+ Dorsalis Pedis (R), 2+ Left Dors-Pedis (L), 2+ Radial Pulses (R), 2+ Radial Pulses (L) Extremities: normal range of motion, non-tender, normal inspection, no pedal edema, no calf tenderness, normal capillary refill 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 This is consistent with his history of Rivera's palsy. He does not have any significant risk factors except for the SERM which alone without any other risk factor for clots according to a case study recently reviewed only confers about a 0.08% population risk for clot formation which is not significant alone. He has no risk factors nor signs today that he has a clot. He has the same symptoms 2 weeks ago which improved after starting steroids. We've explained to him that most likely would improve if we put him on some steroids and acyclovir for the next week. Alternatively if his anxiety was not satisfied we are offering to do a d-dimer however if we do the d-dimer then he would need to accept the risk of performing a CT angiogram of the head and neck if it is inconclusive. The patient and his agree that this is likely just Rivera's palsy and do not want to pursue further workup. We have given return precautions if anything changes or goes beyond the level of his head when he needs to return to the ER immedia tely. He is neurologically intact at this time. Departure Impression Primary Impression: Rivera's palsy Disposition: 01 HOME, SELF-CARE Condition: Stable Departure-Patient Inst. Decision time for Depature: 20:42 Referrals: [facility] (PCP) Primary Care Physician KRISTA BATISTA APRN (Family) Primary Care Physician Patient Instructions: Rivera's Palsy (DC) Add. Discharge Instructions: I suspect your experiencing an episode of Rivera's palsy most recently and you should expect some improvement on the steroids and acyclovir over the next coup le days. If your symptoms go beyond the level of your head such as your arm or leg then you need to return to the ER immediately. If you have any other new concerns then you should also return to the ER or to your primary care doctor for further management. Steroids frequently cause difficulty sleeping, feeling of being wired or extra energy. Prednisone 2 tablets daily for the next 5 days then one tablet daily for 3 days. Acyclovir 400 mg tablets 5 times a day for the next 10 days. All discharge instructions reviewed with patient and/or family. Voiced understanding. Scripts Prednisone (Prednisone) 20 Mg Tab 40 MG PO DAILY for 8 Days, #13 TAB 0 Refills 2 tablets daily for 5 days One tablet daily for 3 days Prov: JENNIE BECK 05/28/19 Acyclovir (Acyclovir) 400 Mg Tablet 400 MG PO 5XD for 10 Days, #50 TAB 0 Refills Prov: JENNIE BECK 05/28/19 JENNIE BECK May 28, 2019 20:41
[2019-05-28] MEDS ORDERED: ACYC400T PO (20:45)
[2019-05-28] MEDS ORDERED: PRD20T PO (20:45)
[2019-05-28 20:50] VITALS: BP 132/82
== END 2019-05-28 20:51 | disposition home or self-care (01) ==
LOC: EDUNIT# 19:23 → ER 19:25
DX: G51.0 Bell's palsy (principal); Z77.22 Contact with and (suspected) exposure to environmental tobacco smoke (acute) (chronic)
CPT/HCPCS: 99283

== ENCOUNTER → 2019-05-31 | Outpatient (CLI) | payer BC ==
[~2019-05-31] MED LIST changes: +ACYC400T PO
[2019-05-31 18:10] LABS: SEMEN VOLUME 1.9 ML (1.5-5.0)
== END ==
LOC: LAB 16:01
PROVIDERS: ATTEND Urology
DX: N46.9 Male infertility, unspecified (principal)
CPT/HCPCS: 89320

== ENCOUNTER → 2019-06-13 | Outpatient (CLI) | payer BC ==
--- NOTE | 2019-06-13 16:20 | Diagnostic Imaging Report ---
PROCEDURE: MR imaging of the brain without contrast. TECHNIQUE: Multiplanar, multisequence MR imaging of the brain was performed without contrast. INDICATION: Left-sided facial numbness and tingling. COMPARISON: CT head without contrast 06/22/2018. FINDINGS: No abnormal intracranial signal. No restricted water diffusion or hemosiderin deposition. Normal morphology including the major midline structures, sella, posterior fossa and cerebellar pontine angle. No hydrocephalus or extra-axial fluid collections. Normal intracranial flow voids. The orbits are negative on this nondedicated exam. The paranasal sinuses and mastoids are clear. Normal bone marrow signal. IMPRESSION: Normal MRI of the brain without contrast. Dictated by: Dictated on workstation # [id number]
== END ==
LOC: RAD 15:30
PROVIDERS: ATTEND Nurse Practitioner Primary Care
DX: R20.2 Paresthesia of skin (principal)
CPT/HCPCS: 70551

== ENCOUNTER → 2021-05-14 | Outpatient (CLI) | payer SELFPAY ==
[~2021-05-14] MED LIST changes: -ACYC400T PO; +ACYC400T21 PO; +METF-865; -METF500T19
[2021-05-14 16:14] LABS: SEMEN VOLUME 1.5 ML (1.5-5.0)
== END ==
LOC: LAB 14:56
PROVIDERS: ATTEND Urology
DX: N46.9 Male infertility, unspecified (principal)
CPT/HCPCS: 89320